=== PATIENT | male | born 1950 | race Caucasian/White ===

== ENCOUNTER 2023-10-13 17:43 | Inpatient (IN) | payer MEDICARE, OTHER, SELFPAY ==
[2023-10-13] VITALS (16 sets, daily range): BP systolic 111–176; BP diastolic 59–78; PULSE 65–100; RESP 14–21; TEMP 36.5–37.7; O2SAT 83–98; BMI 23.3
--- NOTE | ~2023-10-13 | XR_ITS ---
Portable chest x-ray Comparison: 10/13/2023 Clinical History: Pneumonia Findings: There is hazy left basilar airspace disease, possible minimal involvement the right lower lobe. Stable calcified left hilar lymph nodes. Cardiomediastinal silhouette is stable. Bones and sof t tissues are unremarkable. Impression: Bibasilar airspace disease, left worse than right. Correlate for pneumonia or possibly pulmonary pete a. Reviewed, dictated and finalized at location M. NO FLOOR SUPERVISOR Impression: Bibasilar airspace disease, left worse than right. Correlate for pneumonia or p ossibly pulmonary edema.
--- NOTE | ~2023-10-13 | XR_ITS ---
EXAMINATION: XR chest 1V portable INDICATION: Aspiration pneumonia TECHNIQUE: Portable AP chest at 0952 hours COMPARISON: 10/16/2023 FINDINGS: Bibasilar airspace opacities persist without significant change. No pleural effusion or pne umothorax. The cardiomediastinal silhouette is stable. IMPRESSION: 1. Stable bibasilar airspace opacities, consistent with atelectasis versus pneumonia. Reviewed, dictated and finalized at location L. ENT LIFE VICE PRESIDENT IMPRESSION: 1. Stable bibasilar airspace opacities, consistent with atelectasis versus pneu monia.
--- NOTE | ~2023-10-13 | XR_ITS ---
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 RESULT: Lines, tubes, and devices: None. Lungs and pleura: Peripheral reticular opacities and patchy lower lung groundglass opacities. Cardiomediastinal silhouette: Stable. Granulomatous calcifications. Other: No acute osseous or upper abdominal finding. IMPRESSION: Mild interstitial edema. Infection is not excluded Reviewed, dictated and finalized at location K. R LINE REPAIRER
--- NOTE | 2023-10-13 17:49 | ECG_ITS ---
Measurements Intervals [place] Rate: 92 P: 64 NV: 128 QRS: -11 QRSD: 103 T: 64 QT: 322 QTc: 399 Interpretive Statements SINUS RHYTHM INCOMPLETE RIGHT BUNDLE BRANCH BLOCK [90+ ms QRS DURATION, TERMINAL R IN V1/V2, 40+ ms S IN I/aVL/V4/V5/V6] BORDERLINE ECG NO PREVIOUS ECG AVAILABLE FOR COMPARISON Electronically Signed On 10-14-2023 8:04:25 INFORMATION SECURITY CONSULTANT by Julio Arias M.D.
[2023-10-13 18:13] LABS: Basophils Percent Auto 0.1 % (0.2-1.2); Eosinophils Absolute Auto 0.1 K/mm3 (0-0.3); Eosinophils Percent Auto 0.8 % (0-4.4); Hematocrit 41.2 % (42.0-52.0); Hemoglobin 13.8 g/dL (14.0-18.0); Immature Granulocyte Absolute 0.05 K/mm3 (0.00-0.031); Immature Granulocyte Percent A 0.4 % (0-0.5); Lymphocytes Absolute Auto 0.62 K/mm3 (0.9-3.2); Lymphocytes Percent Auto 5.1 % (18.3-44.2); Mean Corpuscular HGB Conc 33.5 g/dl (32-36); Mean Corpuscular Volume 95.6 fl (80-100); Mean Platelet Volume 11.1 fl (7.4-10.4); Monocytes Absolute Auto 0.9 K/mm3 (0.1-0.6); Monocytes Percent Auto 7.3 % (2.6-8.5); Neutrophils Absolute Auto 10.6 K/mm3 (1.3-6.7); Neutrophils Percent Auto 86.3 % (45.5-73.1); Platelet Count Result 161 k/mm3 (150-375); Red Blood Count 4.31 M/mm3 (4.6-6.20); Red Cell Distribution Width 11.9 % (11.5-14.5); White Blood Count 12.3 K/mm3 (4.5-10.0)
[2023-10-13 18:59] LABS: Alanine Aminotransferase 16 U/L (6-50); Albumin Level 4.3 g/dL (3.5-5.1); Alkaline Phosphatase 50 U/L (38-126); Anion Gap 7 mmol/L (8-16); Aspartate Amino Transferase 27 U/L (17-59); Bilirubin,Total 0.6 mg/dL (0.2-1.3); Blood Urea Nitrogen 21 mg/dL (9-20); Calcium 8.9 mg/dL (8.4-10.2); Carbon Dioxide 30 mmol/L (22-30); Chloride 96 mmol/L (98-107); Estimated CRCL calculation 102 ml/min; Estimated Glomerular Filt Rate > 60; Glucose 191 mg/dL (65-110); Potassium 4.4 mmol/L (3.4-5.0); Sodium 133 mmol/L (137-145)
[2023-10-13 19:04] LABS: Fractional Inspired Oxygen 44 %; HCO3 VBG 29.8 mEq/l (24.0-30.0); PCO2 VBG 45.7 mmHg (42.0-48.0); PO2 VBG 36.8 mmHg (35.0-45.0)
[2023-10-13 19:08] LABS: pH VBG 7.432 (7.300-7.400)
--- NOTE | 2023-10-13 19:55 | ED.SOB ---
HPI - SOB/Dyspnea General Chief Complaint: Shortness of Breath/Dyspnea <Frances Ledezma PA-C - Last Filed: 10/13/23 21:53> Stated Complaint: dyspnea <Frances Ledezma PA-C - Last Filed: 10/13/23 21:53> Time Seen by Provider: 10/13/23 19:33 <Frances Ledezma PA-C - Last Filed: 10/13/23 21:53> History of Present Illness HPI Narrative: 73-year-old male with history of tongue cancer that was diagnosed in 2010 chronic aspiration pneumonia with G-tube placement reports for evaluation for increased difficulty breathing over the past few days, worsening today. Patient arrived via EMS from home after his breathing significantly worsened around 1600. His is at bedside to assist with history. States they normally check patient's vital signs daily and he has been afebrile and satting in the mid upper 90s which is his baseline. Today, he spiked a fever of 101 and his O2 was found to be in the high 80s on EMS arrival to his home. He was placed on 4 L nasal cannula and has been satting mid to upper 90 since. He states he had some epigastric/inferior chest pain that lasted a few minutes upon EMS arrival but has since resolved. He denies radiating symptoms are aggravating or alleviating factors. He is reporting shortness of breath and believes it is secondary to a aspiration pneumonia. The patient has been NPO since 2021 when he had his G-tube placed for chronic aspiration pneumonia. She states he takes Zithromax 3 times a week for suppression. Reports a couple weeks ago, he began having a fever and was started on Augmentin. States he improved until the past few days. Denies history of heart failure. States he smoked cigarettes daily from college age to about 2004. All of his physicians are at [facility]. <Frances Ledezma PA-C - Last Filed: 10/13/23 21:53> Related Data Home Medications: Home Medications Medication Instructions Recorded Confirmed amlodipine 10 mg tablet 10 mg feeding tube DAILY 10/13/23 10/13/23 amoxicillin 875 mg-potassium 1 tablet feeding tube Q12H PRN 10/13/23 10/13/23 clavulanate 125 mg tablet Respiratory Distress azithromycin 500 mg tablet 500 mg feeding tube Q3-4D 10/13/23 10/13/23 cevimeline 30 mg capsule 1 cap feeding tube TID 10/13/23 10/13/23 levothyroxine 50 mcg capsule 50 mcg PO DAILY 10/13/23 10/13/23 sildenafil 25 mg tablet 25 mg PO DAILY PRN Erectile 10/13/23 10/13/23 Dysfunction <MARYBETH Lopez Last Filed: 10/13/23 21:53> Allergies/Adverse Reactions: Allergies Allergy/AdvReac Type Severity Reaction Status Date / Time Aminoglycosides Allergy Mild RASH Verified 10/13/23 21:58 bacitracin Allergy Mild RASH Verified 10/13/23 21:58 neomycin Allergy Mild RASH Verified 10/13/23 21:58 albuterol AdvReac Chest Pain Verified 10/13/23 21:58 ANTIHISTAMINE Allergy Mild RASH Uncoded 12/09/08 14:16 POLYMYXINBSULF Allergy Mild RASH Uncoded 12/09/08 14:16 <Frances Ledezma PA-C - Last Filed: 10/13/23 21:53> Review of Systems Review of Systems: CONSTITUTIONAL: Denies fever, chills, or sweats. EYES: Denies visual changes, redness, or discharge. ENT: Denies rhinorrhea, congestion, sore throat, or otalgia. CARDIOVASCULAR: See HPI RESPIRATORY: See HPI GASTROINTESTINAL: Denies abdominal pain, nausea, vomiting, or diarrhea. GENITOURINARY: Denies dysuria or hematuria. SKIN: Denies rash or itching. MUSCULOSKELETAL: Denies back pain, joint pain, or myalgia. NEUROLOGIC: Denies headache, numbness, or weakness. PSYCHIATRIC: Denies anxiety or depression. <MARYBETH Lopez Last Filed: 10/13/23 21:53> [facility] Past Medical History Medical History: Medical History (Updated 10/14/23 @ 17:36 by Christine Holm, ALBER) Gastrointestinal tube present History of gastrostomy tube placement Tongue cancer <MARYBETH Lopez Last Filed: 10/13/23 21:53> Social History Social History: Social History (Reviewed 10/13/23 @ 20:05 by Frances Ledezma
[2023-10-13 20:51] LABS: Alveolar/Arterial O2 Gradient 136.8 mmHg; Base Excess ABG 4.5 mEq/l (+/-2.0); Fractional Inspired Oxygen 36 %; HCO3 ABG 28.7 mEq/l (22.0-26.0); Oxygen Content ABG 18.7 %vol (16.0-22.0); Oxygen Saturation ABG 95.3 % (95.0-100.0); Oxyhemoglobin 93.7 % THb (90.0-100.0); PO2 ABG 72.3 mmHg (80.0-100.0); PO2 FiO2 Ratio Arterial Blood 2.01 %; Total Hemoglobin 14.2 g/dL (12.0-18.0); pH ABG 7.463 (7.350-7.450)
[2023-10-13 20:52] LABS: Device NASAL CANNULA; Modified Allen's Test Pass; Site Drawn RIGHT RADIAL
[2023-10-13 21:04] LABS: Magnesium 2.5 mg/dL (1.6-2.3)
[2023-10-13 21:04] LABS: Prothrombin Time 13.4 Seconds (11.1-14.7)
[2023-10-13 21:05] LABS: Partial Thromboplastin Time 27.5 SECONDS (22.3-36.8)
[2023-10-13] MEDS: PIPERACILLIN/TAZ 4.5G/NS 100ML 4.5 GM/100 ML BAG IVPB (21:07)
[2023-10-13 21:16] LABS: NT Pro B Type Natriuretic Pept 427 pg/mL (19.9-100)
[2023-10-13 21:18] LABS: Appearance Urine Clear (Clear); Bacteria Urine None Seen /hpf; Bilirubin Urine Negative (Negative); Blood Urine Negative (Negative); Color Urine Yellow (Yellow); Glucose Urine UA Negative (Negative); Ketones Urine Negative (Negative); Leukocyte Esterase Ur Negative LEU/UL (Negative); Nitrate Urine Negative (Negative); Non Pathogenic Casts 0-2; Protein Urine 1+ mg/dL (Negative); RBC Urine 0-2 /hpf (0-2); Specific Grav Ur 1.013 (1.001-1.035); Squamous Epithelial Cell Urine None seen /hpf (Few); WBC Urine 0-5 /hpf; pH Urine 7.5 (5.0-9.0)
[2023-10-13 21:22] LABS: Add Urine Microscopic? YES
--- NOTE | 2023-10-13 21:49 | PM.IMHP ---
H&P: HPI History of Present Illness Date/Time: 10/13/23 21:49 Chief Complaint: shortness of breath Narrative: This is a 73-year-old male with past medical history significant remote head and neck cancer status post partial tongue resection, radiation chemotherapy, recurrent aspiration pneumonia, status post PEG tube placement, patient presents to the emergency room due to shortness of breath worsened over the last 2-3 days, patient is NPO is able to swallow his secretions. Denies any fevers, rigors, chills, nausea, vomiting. EXAMINATION:? XR chest 2V Exam Date/Time:? 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 Comparison:? None. RESULT: Lines, tubes, and devices:? None. Lungs and pleura:? Peripheral reticular opacities and patchy lower lung groundglass opacities. Cardiomediastinal silhouette:? Stable. Granulomatous calcifications. Other:? No acute osseous or upper abdominal finding. ? IMPRESSION: Mild interstitial edema. Infection is not excluded Review of Systems Review of Systems: shortness of breath Constitutional: Constitutional: Denies body ache(s), Denies chills, Denies fatigue, Denies fever(s), Denies malaise and Reports other ( NPO peg tube in place) Eyes: Eyes: Denies change in vision ENT: Reports dysphagia Cardiovascular: Cardiovascular: Denies chest pain, Denies radiating jaw, neck or arm pain and Denies palpitations Respiratory: Respiratory: Denies excessive phlegm production, Reports dyspnea and Denies wheezing Gastrointestinal: Gastrointestinal: Denies abdominal pain, Denies dyspepsia, Denies heartburn, Denies diarrhea, Denies nausea and Denies vomiting Genitourinary: Genitourinary: Denies dysuria Musculoskeletal: Musculoskeletal: Denies arthralgias Integumentary/Breasts: Skin/Breast: Denies rash Neurologic: Denies focal weakness and Denies Sensory deficit (Neuro) Psychiatric: Psychiatric: Reports no additional psychiatric complaints and Reports as per HPI Endocrine: Endocrine: Denies cold intolerance, Denies flushing, Denies heat intolerance, Denies polyphagia, Denies polydipsia and Denies palpitations Hematologic/Lymphatic: Hematologic/Lymphatic: Reports no additional hematologic/lymphatic complaints and Reports as per HPI Allergic/Immunologic: Allergic/Immunologic: Reports no additional allergic/immunologic complaints and Reports as per HPI [facility] Past Medical History Medical History (Updated 10/14/23 @ 21:34 by Delores Smith MD) Aspiration pneumonia Gastrointestinal tube present History of gastrostomy tube placement Tongue cancer Social History Social History Smoking packs per day: 1 Smoking cigarettes per day: 20.0 Smoking status: Former smoker Tobacco type: cigarettes Second hand tobacco smoke exposure: No Alcohol intake: never Substance use: never Do You Feel Safe in your Home?: Yes Lack of Transportation: No Lack of Food: Never True Current Housing: I Have Housing Concerned About Future Housing: No Difficulty Paying Gas/Electric Bills: No Difficulty Paying for Meds: No Currently Unemployed: No Education: Master's Degree or Higher Difficulty w/ Childcare or Family Care: No Spiritual care concerns: No Meds Home Medications and Allergies Home Medications Medication Instructions Recorded Confirmed Type amlodipine 10 mg tablet 10 mg feeding tube DAILY 10/13/23 10/13/23 History amoxicillin 875 mg-potassium 1 tablet feeding tube Q12H PRN 10/13/23 10/13/23 History clavulanate 125 mg tablet Respiratory Distress azithromycin 500 mg tablet 500 mg feeding tube Q3-4D 10/13/23 10/13/23 History cevimeline 30 mg capsule 1 cap feeding tube TID 10/13/23 10/13/23 History levothyroxine 50 mcg capsule 50 mcg PO DAILY 10/13/23 10/13/23 History sildenafil 25 mg tablet 25 mg PO DAILY PRN Erectile 10/13/23 10/13/23 History Dysfunction Allergies Allergy/AdvReac Ty
--- NOTE | 2023-10-13 22:58 | PC.NURSE ---
Pt flushed 16 oz filtered water through his g tube- verbal okay given per BRENT Emerson.
--- NOTE | 2023-10-13 23:33 | ADMGEN ---
This patient, Ashlee Hinds Jr, was admitted to [facility] Surg Room 324-02. Patient/family oriented to hospital policies and general routines including ID bracelet, bed and alarms, visiting hours, pain management, procedures, bathroom and other care routines, personal items, smoking policy, room service/diet, and visiting hours. Information on how to activate the Rapid Response Team has been discussed. Patient/Family are encouraged to report perceived risks to care and to ask questions if they do not understand what they are told or what they should do.
[2023-10-14] MEDS: WATER FOR IRRIGATION, STERILE 1,000 ML BOTTLE 1000 ML ×3 (04:39→19:51)
[2023-10-14 06:00] VITALS: BP 148/80; PULSE 73; RESP 20; TEMP 36.6; O2SAT 98
[2023-10-14] MEDS: LEVOTHYROXINE SODIUM 50 MCG TABLET FEED TUBE (06:17)
[2023-10-14] MEDS: amLODIPine BESYLATE 5 MG TABLET 10 MG FEED TUBE (08:57)
[2023-10-14 09:16] VITALS: O2SAT 91
--- NOTE | 2023-10-14 11:12 | PM.IMPN ---
Progress Note: A&P Assessment and Plan (1) Acute hypoxemic respiratory failure: Code(s): J96.01 - Acute respiratory failure with hypoxia Status: Acute Assessment and Plan: 10/14/2023: Currently on 3 L nasal cannula Crackles noted to all right greater than left lung kerns Wean O2 to keep sat greater than 92% Chest x-ray suggesting aspiration pneumonia Patient started on Rocephin and azithromycin will switch to Unasyn and Flagyl considering the aspiration pneumonia Patient currently on G-tube feedings, he does not receive any feedings by mouth (2) Aspiration pneumonia: Qualifiers: Aspiration pneumonia type: unspecified Laterality: unspecified laterality Lung location: unspecified part of lung Qualified Code(s): J69.0 - Pneumonitis due to inhalation of food and vomit Code(s): J69.0 - Pneumonitis due to inhalation of food and vomit Status: Acute Assessment and Plan: See above (3) Tongue cancer: Code(s): C02.9 - Malignant neoplasm of tongue, unspecified Status: Chronic Assessment and Plan: Of note, was diagnosed in 2010 has been G-tube dependent since then (4) Gastrointestinal tube present: Code(s): Z93.1 - Gastrostomy status Status: Acute Assessment and Plan: 10/14/2023: Continue home tube feeding of Arelis giang Melquiades 1.4 count Q 4 hour bolus feeds and water flushes Medications per tube Time Spent With Patient Time with patient: Greater than 35 minutes Subjective Date/time seen: 10/14/23 11:12 Interval history: This is a 73-year-old male who presented to the hospital on 10/13/2023 with shortness of breath. Workup in the hospital included a chest x-ray which shown mild interstitial edema, peripheral opacities and patchy lower lung ground-glass opacities. EKG shows normal sinus rhythm with a rate of 92 and an incomplete right bundle branch block. Labs revealed a white blood cell count of 12.3, hemoglobin 13.8, hematocrit 41.2, sodium 133, chloride 96, magnesium 2.5, liver enzymes are normal, proBNP 426, troponin 0.030. UA was obtained and showed 1+ protein otherwise essentially normal. Blood cultures were obtained and are pending. Patient was given a dose of Zosyn while in the ED. On examination today patient is alert oriented x3, lying in the bed. Labs today revealed white blood cell count of 13.4, hemoglobin 13.2, hematocrit 38.9, sodium 134, blood sugars ranging 136-191, liver enzymes are normal, alk-phos 36. Patient endorses shortness of breath. Patient denies any fever, chills, nausea, vomiting, diarrhea, abdominal pain, chest pain. Lungs coarse on right lung kerns, he is currently on 3 L nasal cannula. He does not appear to be in any acute distress. Patient was started on Rocephin and Azithromycin and will switch to Unasyn and Flagyl considering this is more aspiration pneumonia. Review of Systems Review of Systems: All systems reviewed & are unremarkable except as noted in HPI and below Constitutional: Constitutional: Reports as per HPI and Reports no additional constitutional complaints Eyes: Eyes: Reports as per HPI and Reports no additional eye complaints ENT: Reports system reviewed and no additional complaints, except as documented and Reports as per HPI Cardiovascular: Cardiovascular: Reports as per HPI and Reports no additional cardiovascular complaints Respiratory: Respiratory: Reports as per HPI and Reports no additional respiratory complaints Gastrointestinal: Gastrointestinal: Reports as per HPI and Reports no additional gastrointestinal complaints Genitourinary: Genitourinary: Reports no additional male genitourinary complaints and Reports as per HPI Musculoskeletal: Musculoskeletal: Reports no additional musculoskeletal complaints and Reports as per HPI Integumentary/Breasts: Skin/Breast: Reports system reviewed and no additional complaints, except as docu and Reports as per HPI Neurologic: Repor
--- NOTE | 2023-10-14 11:42 | PC.NURSE ---
Pt feeds self 6 bolus feedings throughout the day. His formula is [employer], vanilla, 1.4 niurka/ml, 11 ounces per carton. Pt only uses sterile or filtered water. He flushes a total of 8 oz of flush with each feeding. 2-3mls of residual this morning when pt administered his amlodipine with approx 1-2 oz water pre and post med flushing
[2023-10-14 12:19] LABS: Basophils Percent Auto 0.1 % (0.2-1.2); Hematocrit 38.9 % (42.0-52.0); Hemoglobin 13.2 g/dL (14.0-18.0); Immature Granulocyte Absolute 0.06 K/mm3 (0.00-0.031); Immature Granulocyte Percent A 0.4 % (0-0.5); Lymphocytes Percent Auto 4.5 % (18.3-44.2); Mean Corpuscular HGB Conc 33.9 g/dl (32-36); Mean Corpuscular Hemoglobin 32.4 pg (26-34); Mean Corpuscular Volume 95.3 fl (80-100); Mean Platelet Volume 10.7 fl (7.4-10.4); Monocytes Absolute Auto 0.7 K/mm3 (0.1-0.6); Monocytes Percent Auto 5.1 % (2.6-8.5); Neutrophils Percent Auto 89.9 % (45.5-73.1); Platelet Count Result 159 k/mm3 (150-375); Red Blood Count 4.08 M/mm3 (4.6-6.20); Red Cell Distribution Width 11.9 % (11.5-14.5); White Blood Count 13.4 K/mm3 (4.5-10.0)
[2023-10-14 12:28] LABS: Alanine Aminotransferase 16 U/L (6-50); Alkaline Phosphatase 36 U/L (38-126); Anion Gap 3 mmol/L (8-16); Aspartate Amino Transferase 23 U/L (17-59); Bilirubin,Total 0.5 mg/dL (0.2-1.3); Blood Urea Nitrogen 17 mg/dL (9-20); Carbon Dioxide 29 mmol/L (22-30); Chloride 102 mmol/L (98-107); Estimated CRCL calculation 120 ml/min; Estimated Glomerular Filt Rate > 60; Glucose 136 mg/dL (65-110); Potassium 3.7 mmol/L (3.4-5.0); Sodium 134 mmol/L (137-145)
[2023-10-14] MEDS: AZITHROMYCIN 500 MG/NS 250 ML 500 MG/250 ML BAG 250 MG IVPB (13:00)
[2023-10-14 14:00] VITALS: BP 111/61; PULSE 79; RESP 14; TEMP 36.4; O2SAT 94
[2023-10-14] MEDS: WATER FOR IRRIGATION, STERILE 500 ML BOTTLE (19:50)
[2023-10-14 20:00] VITALS: O2SAT 92
[2023-10-14] MEDS: AMPICILLIN SULB 1.5 GM/NS 50ML 1.5 GM/50 ML VIAL IVPB (20:34)
[2023-10-14] MEDS: SODIUM CHLORIDE NASAL GEL 14.1 GM 1 APPLIC NASAL (20:41)
[2023-10-14 21:00] VITALS: BP 135/61; PULSE 84; RESP 21; TEMP 37.4; O2SAT 95
[2023-10-14] MEDS: metroNIDAZOLE 500 MG/ISO 100ML 500 MG/100 ML BAG 100 MG IVPB (21:07)
[2023-10-14 21:40] VITALS: O2SAT 92
[2023-10-15] VITALS (8 sets, daily range): BP systolic 128–134; BP diastolic 58–76; PULSE 73–84; RESP 18–21; TEMP 36.5–37.7; O2SAT 92–98; BMI 23.3
[2023-10-15] MEDS: AMPICILLIN SULB 1.5 GM/NS 50ML 1.5 GM/50 ML VIAL IVPB ×5 (00:55→23:23)
[2023-10-15] MEDS: ACETAMINOPHEN ELIXIR 325 MG/10.15 ML UDC 650 MG PO ×2 (01:25→14:03)
[2023-10-15] MEDS: WATER FOR IRRIGATION, STERILE 1,000 ML BOTTLE 2000 ML ×2 (03:55→19:48)
[2023-10-15] MEDS: metroNIDAZOLE 500 MG/ISO 100ML 500 MG/100 ML BAG 100 MG IVPB ×3 (04:50→20:17)
[2023-10-15] MEDS: SODIUM CHLORIDE 0.9% IV 500 ML 30 ML (04:50)
[2023-10-15] MEDS: LEVOTHYROXINE SODIUM 50 MCG TABLET FEED TUBE (06:14)
[2023-10-15 06:33] LABS: Basophils Percent Auto 0.2 % (0.2-1.2); Eosinophils Absolute Auto 0.1 K/mm3 (0-0.3); Eosinophils Percent Auto 0.4 % (0-4.4); Hematocrit 37.8 % (42.0-52.0); Hemoglobin 12.8 g/dL (14.0-18.0); Immature Granulocyte Absolute 0.05 K/mm3 (0.00-0.031); Immature Granulocyte Percent A 0.4 % (0-0.5); Lymphocytes Absolute Auto 0.97 K/mm3 (0.9-3.2); Lymphocytes Percent Auto 8.5 % (18.3-44.2); Mean Corpuscular HGB Conc 33.9 g/dl (32-36); Mean Corpuscular Hemoglobin 32.5 pg (26-34); Mean Corpuscular Volume 95.9 fl (80-100); Mean Platelet Volume 11.1 fl (7.4-10.4); Monocytes Absolute Auto 1.3 K/mm3 (0.1-0.6); Neutrophils Percent Auto 79.5 % (45.5-73.1); Platelet Count Result 161 k/mm3 (150-375); Red Blood Count 3.94 M/mm3 (4.6-6.20); Red Cell Distribution Width 12.1 % (11.5-14.5); White Blood Count 11.4 K/mm3 (4.5-10.0)
[2023-10-15 06:52] LABS: Alanine Aminotransferase 14 U/L (6-50); Albumin Level 3.6 g/dL (3.5-5.1); Alkaline Phosphatase 46 U/L (38-126); Anion Gap 2 mmol/L (8-16); Aspartate Amino Transferase 27 U/L (17-59); Bilirubin,Total 0.5 mg/dL (0.2-1.3); Blood Urea Nitrogen 20 mg/dL (9-20); Calcium 8.5 mg/dL (8.4-10.2); Carbon Dioxide 31 mmol/L (22-30); Chloride 103 mmol/L (98-107); Estimated CRCL calculation 120 ml/min; Estimated Glomerular Filt Rate > 60; Glucose 117 mg/dL (65-110); Potassium 4.1 mmol/L (3.4-5.0); Sodium 136 mmol/L (137-145)
--- NOTE | 2023-10-15 07:00 | PHAR ---
HOME MED Cevimeline 30 mg Capsule 1 TID HOME MED VERIFIED
[2023-10-15] MEDS: SACCHAROMYCES BOULARDII 250 MG CAPSULE PO ×3 (09:09→17:04)
[2023-10-15] MEDS: amLODIPine BESYLATE 5 MG TABLET 10 MG FEED TUBE (09:09)
--- NOTE | 2023-10-15 09:26 | PM.IMPN ---
Progress Note: A&P Assessment and Plan (1) Acute hypoxemic respiratory failure: Code(s): J96.01 - Acute respiratory failure with hypoxia Status: Acute Assessment and Plan: 10/14/2023: Currently on 3 L nasal cannula Crackles noted to all right greater than left lung kerns Wean O2 to keep sat greater than 92% Chest x-ray suggesting aspiration pneumonia Patient started on Rocephin and azithromycin will switch to Unasyn and Flagyl considering the aspiration pneumonia Patient currently on G-tube feedings, he does not receive any feedings by mouth 10/15/23: Remains on 2 L nasal cannula Continue to wean O2 to keep his sat greater than 92% Continue with Unasyn and Flagyl Will start Xopenex and Solu-Medrol today Ordered Pep therapy and incentive spirometry Will repeat chest x-ray in the morning (2) Aspiration pneumonia: Qualifiers: Aspiration pneumonia type: unspecified Laterality: unspecified laterality Lung location: unspecified part of lung Qualified Code(s): J69.0 - Pneumonitis due to inhalation of food and vomit Code(s): J69.0 - Pneumonitis due to inhalation of food and vomit Status: Acute Assessment and Plan: See above (3) Tongue cancer: Code(s): C02.9 - Malignant neoplasm of tongue, unspecified Status: Chronic Assessment and Plan: Of note, was diagnosed in 2010 has been G-tube dependent since then (4) Gastrointestinal tube present: Code(s): Z93.1 - Gastrostomy status Status: Acute Assessment and Plan: 10/14/2023: Continue home tube feeding of [employer]Melqui[employer] 1.4 count Q 4 hour bolus feeds and water flushes Medications per tube 10/15/23: No change to current treatment plan Time Spent With Patient Time with patient: 25 - 35 minutes Subjective Date/time seen: 10/15/23 09:26 Interval history: 10/14/23: This is a 73-year-old male who presented to the hospital on 10/13/2023 with shortness of breath. Workup in the hospital included a chest x-ray which shown mild interstitial edema, peripheral opacities and patchy lower lung ground-glass opacities. EKG shows normal sinus rhythm with a rate of 92 and an incomplete right bundle branch block. Labs revealed a white blood cell count of 12.3, hemoglobin 13.8, hematocrit 41.2, sodium 133, chloride 96, magnesium 2.5, liver enzymes are normal, proBNP 426, troponin 0.030. UA was obtained and showed 1+ protein otherwise essentially normal. Blood cultures were obtained and are pending. Patient was given a dose of Zosyn while in the ED. On examination today patient is alert oriented x3, lying in the bed. Labs today revealed white blood cell count of 13.4, hemoglobin 13.2, hematocrit 38.9, sodium 134, blood sugars ranging 136-191, liver enzymes are normal, alk-phos 36. Patient endorses shortness of breath. Patient denies any fever, chills, nausea, vomiting, diarrhea, abdominal pain, chest pain. Lungs coarse on right lung kerns, he is currently on 3 L nasal cannula. He does not appear to be in any acute distress. Patient was started on Rocephin and Azithromycin and will switch to Unasyn and Flagyl considering this is more aspiration pneumonia. 10/15/23: Tmax 99.9, currently on 2L NC, VSS. Labs reveal WBC 11.4, hemoglobin 12.8, hematocrit 37.8, sodium 136. Blood culture showing no growth on preliminary read. Will continue with Unasyn and Flagyl for now. Will start Xopenex and Solu-Medrol today as right lung field sounds more harsh today than yesterday. Overall he is improving. Review of Systems Review of Systems: All systems reviewed & are unremarkable except as noted in HPI and below Constitutional: Constitutional: Reports as per HPI and Reports no additional constitutional complaints Eyes: Eyes: Reports as per HPI and Reports no additional eye complaints ENT: Reports system reviewed and no additional complaints, except as documented and Reports as per HPI Cardiovascular: Ca
[2023-10-15] MEDS: methylPREDNISolone SOD SUCC 40 MG VIAL IV PUSH (17:04)
[2023-10-15] MEDS: LEVALBUTEROL NEB 1.25 MG/3 ML INHALATION (20:02)
[2023-10-15] MEDS: SODIUM CHLORIDE NASAL GEL 14.1 GM 1 APPLIC NASAL (20:24)
[2023-10-16] VITALS (14 sets, daily range): BP systolic 125–127; BP diastolic 50–77; PULSE 64–87; RESP 13–20; TEMP 36.3–36.6; O2SAT 92–96
[2023-10-16] MEDS: LEVALBUTEROL NEB 1.25 MG/3 ML INHALATION ×5 (02:05→20:48)
[2023-10-16] MEDS: metroNIDAZOLE 500 MG/ISO 100ML 500 MG/100 ML BAG 100 MG IVPB ×3 (04:24→20:02)
[2023-10-16] MEDS: AMPICILLIN SULB 1.5 GM/NS 50ML 1.5 GM/50 ML VIAL IVPB ×4 (05:50→23:20)
[2023-10-16] MEDS: LEVOTHYROXINE SODIUM 50 MCG TABLET FEED TUBE (05:50)
[2023-10-16 07:09] LABS: Basophils Percent Auto 0.1 % (0.2-1.2); Hematocrit 38.4 % (42.0-52.0); Immature Granulocyte Absolute 0.04 K/mm3 (0.00-0.031); Immature Granulocyte Percent A 0.4 % (0-0.5); Lymphocytes Absolute Auto 0.62 K/mm3 (0.9-3.2); Lymphocytes Percent Auto 6.9 % (18.3-44.2); Mean Corpuscular HGB Conc 33.9 g/dl (32-36); Mean Corpuscular Hemoglobin 32.7 pg (26-34); Mean Corpuscular Volume 96.5 fl (80-100); Mean Platelet Volume 10.8 fl (7.4-10.4); Monocytes Absolute Auto 0.6 K/mm3 (0.1-0.6); Monocytes Percent Auto 7.1 % (2.6-8.5); Neutrophils Absolute Auto 7.7 K/mm3 (1.3-6.7); Neutrophils Percent Auto 85.5 % (45.5-73.1); Platelet Count Result 169 k/mm3 (150-375); Red Blood Count 3.98 M/mm3 (4.6-6.20); White Blood Count 9.1 K/mm3 (4.5-10.0)
[2023-10-16 07:32] LABS: Alanine Aminotransferase 17 U/L (6-50); Albumin Level 3.9 g/dL (3.5-5.1); Alkaline Phosphatase 44 U/L (38-126); Anion Gap 5 mmol/L (8-16); Aspartate Amino Transferase 28 U/L (17-59); Bilirubin,Total 0.4 mg/dL (0.2-1.3); Blood Urea Nitrogen 15 mg/dL (9-20); Calcium 8.6 mg/dL (8.4-10.2); Carbon Dioxide 29 mmol/L (22-30); Chloride 102 mmol/L (98-107); Estimated CRCL calculation 120 ml/min; Estimated Glomerular Filt Rate > 60; Glucose 137 mg/dL (65-110); Potassium 4.2 mmol/L (3.4-5.0); Sodium 136 mmol/L (137-145)
[2023-10-16] MEDS: amLODIPine BESYLATE 5 MG TABLET 10 MG FEED TUBE (09:14)
[2023-10-16] MEDS: methylPREDNISolone SOD SUCC 40 MG VIAL IV PUSH ×2 (09:14→16:50)
[2023-10-16] MEDS: SACCHAROMYCES BOULARDII 250 MG CAPSULE PO ×3 (09:14→16:50)
--- NOTE | 2023-10-16 10:50 | PCNFU ---
Nutrition Follow-Up Complete: Inability to swallow requiring PEG tube feedings related to hx of tongue cancer, aspiration as evidenced by need for full tube feedings. Goal:Tolerate tube feeding at goal rate Pt current nutrition is home tube feeding regimen. Nutrition recommendation: continue with current plan of care Last recorded weight is 76.1 kg. Bowel Motility: +BM 10/14 Labs Reviewed: Hgb:13, HCT:38.4, NA:136, Cr:0.5 Meds Noted: lovenox, solumedrol Skin: no skin issues Additional Notes: Pt gives himself his own tube feeding at home and BROUGHT IN HOME TUBE FEEDING since we do not carry his formula. Krave-N 1.4 - each 11 oz container is 445 kcal, 20 g protein, 234 ml free water. Bolus 6x day for total 2670 kcal, 120 g protein, 1404 ml free water. Flushes 8 oz with each bolus for total 2826 ml free water/day. Pt tolerating. Monitoring tolerance, labs, weights, plan of care Follow up Tuesdays and Fridays per policy
--- NOTE | 2023-10-16 14:21 | P.PNIM_ITS ---
Progress Note: A&P Assessment and Plan (1) Acute hypoxemic respiratory failure: Code(s): J96.01 - Acute respiratory failure with hypoxia Status: Acute Assessment and Plan: 10/14/2023: * Currently on 3 L nasal cannula * Crackles noted to all right greater than left lung kerns * Wean O2 to keep sat greater than 92% * Chest x-ray suggesting aspiration pneumonia * Patient started on Rocephin and azithromycin will switch to Unasyn and Flagyl considering the aspiration pneumonia * Patient currently on G-tube feedings, he does not receive any feedings by mouth 10/15/23: * Remains on 2 L nasal cannula * Continue to wean O2 to keep his sat greater than 92% * Continue with Unasyn and Flagyl * Will start Xopenex and Solu-Medrol today * Ordered Pep therapy and incentive spirometry * Will repeat chest x-ray in the morning 10/16/2023: * currently on 1.0 L nasal cannula * continue to wean oxygen to keep sat greater than 92% * Lung sounds harsh bilaterally today * continue with IV antibiotics, will likely transition to oral antibiotics tomorrow * continue breathing treatments and Solu-Medrol * continue incentive spirometry and pep therapy * Currently on Claritin * Will start Flonase today (2) Aspiration pneumonia: Qualifiers: Aspiration pneumonia type: unspecified Laterality: unspecified laterality Lung location: unspecified part of lung Qualified Code(s): J69.0 - Pneumonitis due to inhalation of food and vomit Code(s): J69.0 - Pneumonitis due to inhalation of food and vomit Status: Acute Assessment and Plan: * See above (3) Tongue cancer: Code(s): C02.9 - Malignant neoplasm of tongue, unspecified Status: Chronic Assessment and Plan: * Of note, was diagnosed in 2010 has been G-tube dependent since then (4) Gastrointestinal tube present: Code(s): Z93.1 - Gastrostomy status Status: Acute Assessment and Plan: 10/14/2023: * Continue home tube feeding of Melquiades Olivo 1.4 count Q 4 hour bolus feeds and water flushes * Medications per tube 10/15/23: * No change to current treatment plan Time Spent With Patient Time with patient: Greater than 35 minutes Subjective Date/time seen: 10/16/23 14:21 Interval history: 10/14/23: This is a 73-year-old male who presented to the hospital on 10/13/2023 with shortness of breath. Workup in the hospital included a chest x-ray which shown mild interstitial edema, peripheral opacities and patchy lower lung ground-glass opacities. EKG shows normal sinus rhythm with a rate of 92 and an incomplete right bundle branch block. Labs revealed a white blood cell count of 12.3, hemoglobin 13.8, hematocrit 41.2, sodium 133, chloride 96, magnesium 2.5, liver enzymes are normal, proBNP 426, troponin 0.030. UA was obtained and showed 1+ protein otherwise essentially normal. Blood cultures were obtained and are pending. Patient was given a dose of Zosyn while in the ED. On examination today patient is alert oriented x3, lying in the bed. Labs today revealed white blood cell count of 13.4, hemoglobin 13.2, hematocrit 38.9, sodium 134, blood sugars ranging 136-191, liver enzymes are normal, alk-phos 36. Patient endorses shortness of breath. Patient denies any fever, chills, nausea, vomiting, diarrhea, abdominal pain, chest pain. Lungs coarse on right lung kerns, he is currently on 3 L nasal cannula. He does not appear to be in any acute distress. Patient was started on Rocephin and Azithromycin and will switch to Unasyn and Flagyl considering this is more aspiration pneumonia.
--- NOTE | 2023-10-16 14:21 | PM.IMPN ---
Progress Note: A&P Assessment and Plan (1) Acute hypoxemic respiratory failure: Code(s): J96.01 - Acute respiratory failure with hypoxia Status: Acute Assessment and Plan: 10/14/2023: Currently on 3 L nasal cannula Crackles noted to all right greater than left lung kerns Wean O2 to keep sat greater than 92% Chest x-ray suggesting aspiration pneumonia Patient started on Rocephin and azithromycin will switch to Unasyn and Flagyl considering the aspiration pneumonia Patient currently on G-tube feedings, he does not receive any feedings by mouth 10/15/23: Remains on 2 L nasal cannula Continue to wean O2 to keep his sat greater than 92% Continue with Unasyn and Flagyl Will start Xopenex and Solu-Medrol today Ordered Pep therapy and incentive spirometry Will repeat chest x-ray in the morning 10/16/2023: currently on 1.0 L nasal cannula continue to wean oxygen to keep sat greater than 92% Lung sounds harsh bilaterally today continue with IV antibiotics, will likely transition to oral antibiotics tomorrow continue breathing treatments and Solu-Medrol continue incentive spirometry and pep therapy Currently on Claritin Will start Flonase today (2) Aspiration pneumonia: Qualifiers: Aspiration pneumonia type: unspecified Laterality: unspecified laterality Lung location: unspecified part of lung Qualified Code(s): J69.0 - Pneumonitis due to inhalation of food and vomit Code(s): J69.0 - Pneumonitis due to inhalation of food and vomit Status: Acute Assessment and Plan: See above (3) Tongue cancer: Code(s): C02.9 - Malignant neoplasm of tongue, unspecified Status: Chronic Assessment and Plan: Of note, was diagnosed in 2010 has been G-tube dependent since then (4) Gastrointestinal tube present: Code(s): Z93.1 - Gastrostomy status Status: Acute Assessment and Plan: 10/14/2023: Continue home tube feeding of [employer] 1.4 count Q 4 hour bolus feeds and water flushes Medications per tube 10/15/23: No change to current treatment plan Time Spent With Patient Time with patient: Greater than 35 minutes Subjective Date/time seen: 10/16/23 14:21 Interval history: 10/14/23: This is a 73-year-old male who presented to the hospital on 10/13/2023 with shortness of breath. Workup in the hospital included a chest x-ray which shown mild interstitial edema, peripheral opacities and patchy lower lung ground-glass opacities. EKG shows normal sinus rhythm with a rate of 92 and an incomplete right bundle branch block. Labs revealed a white blood cell count of 12.3, hemoglobin 13.8, hematocrit 41.2, sodium 133, chloride 96, magnesium 2.5, liver enzymes are normal, proBNP 426, troponin 0.030. UA was obtained and showed 1+ protein otherwise essentially normal. Blood cultures were obtained and are pending. Patient was given a dose of Zosyn while in the ED. On examination today patient is alert oriented x3, lying in the bed. Labs today revealed white blood cell count of 13.4, hemoglobin 13.2, hematocrit 38.9, sodium 134, blood sugars ranging 136-191, liver enzymes are normal, alk-phos 36. Patient endorses shortness of breath. Patient denies any fever, chills, nausea, vomiting, diarrhea, abdominal pain, chest pain. Lungs coarse on right lung kerns, he is currently on 3 L nasal cannula. He does not appear to be in any acute distress. Patient was started on Rocephin and Azithromycin and will switch to Unasyn and Flagyl considering this is more aspiration pneumonia. 10/15/23: Tmax 99.9, currently on 2L NC, VSS. Labs reveal WBC 11.4, hemoglobin 12.8, hematocrit 37.8, sodium 136. Blood culture showing no growth on preliminary read. Will continue with Unasyn and Flagyl for now. Will start Xopenex and Solu-Medrol today as right lung field sounds more harsh today than yesterday. Overall he is improving. 10/16/2023: T-max 99.3?, curr
[2023-10-16] MEDS: WATER FOR IRRIGATION, STERILE 1,000 ML BOTTLE 1000 ML (16:50)
[2023-10-16] MEDS: FLUTICASONE PROPIONATE 0.05% NA SPR 16 GM BTL (*BKC) 1 SPRAY NASAL (20:02)
[2023-10-16] MEDS: SODIUM CHLORIDE NASAL GEL 14.1 GM 1 APPLIC NASAL (20:02)
[2023-10-17] VITALS (9 sets, daily range): BP systolic 115–152; BP diastolic 62–74; PULSE 80–93; RESP 13–22; TEMP 36.3–36.9; O2SAT 91–95
[2023-10-17] MEDS: AMPICILLIN SULB 1.5 GM/NS 50ML 1.5 GM/50 ML VIAL IVPB ×2 (05:02→12:51)
[2023-10-17] MEDS: metroNIDAZOLE 500 MG/ISO 100ML 500 MG/100 ML BAG 100 MG IVPB ×2 (05:02→13:10)
[2023-10-17] MEDS: LEVOTHYROXINE SODIUM 50 MCG TABLET FEED TUBE (05:09)
[2023-10-17 06:01] LABS: Basophils Percent Auto 0.1 % (0.2-1.2); Hematocrit 38.8 % (42.0-52.0); Hemoglobin 12.7 g/dL (14.0-18.0); Immature Granulocyte Percent A 0.7 % (0-0.5); Lymphocytes Absolute Auto 0.82 K/mm3 (0.9-3.2); Lymphocytes Percent Auto 5.5 % (18.3-44.2); Mean Corpuscular HGB Conc 32.7 g/dl (32-36); Mean Corpuscular Hemoglobin 32.5 pg (26-34); Mean Corpuscular Volume 99.2 fl (80-100); Mean Platelet Volume 10.5 fl (7.4-10.4); Monocytes Absolute Auto 1.1 K/mm3 (0.1-0.6); Neutrophils Percent Auto 86.7 % (45.5-73.1); Platelet Count Result 179 k/mm3 (150-375); Red Blood Count 3.91 M/mm3 (4.6-6.20); Red Cell Distribution Width 12.4 % (11.5-14.5)
[2023-10-17 06:33] LABS: Alanine Aminotransferase 15 U/L (6-50); Albumin Level 3.8 g/dL (3.5-5.1); Alkaline Phosphatase 46 U/L (38-126); Anion Gap 1 mmol/L (8-16); Aspartate Amino Transferase 19 U/L (17-59); Bilirubin,Total 0.4 mg/dL (0.2-1.3); Blood Urea Nitrogen 15 mg/dL (9-20); Calcium 8.8 mg/dL (8.4-10.2); Carbon Dioxide 30 mmol/L (22-30); Chloride 102 mmol/L (98-107); Estimated CRCL calculation 146 ml/min; Estimated Glomerular Filt Rate > 60; Glucose 134 mg/dL (65-110); Sodium 133 mmol/L (137-145)
[2023-10-17 06:45] LABS: Potassium 3.8 mmol/L (3.4-5.0)
[2023-10-17] MEDS: LEVALBUTEROL NEB 1.25 MG/3 ML INHALATION ×3 (07:04→21:23)
[2023-10-17] MEDS: amLODIPine BESYLATE 5 MG TABLET 10 MG FEED TUBE (08:43)
[2023-10-17] MEDS: SACCHAROMYCES BOULARDII 250 MG CAPSULE PO ×3 (08:44→18:38)
[2023-10-17] MEDS: methylPREDNISolone SOD SUCC 40 MG VIAL IV PUSH (08:44)
[2023-10-17] MEDS: FLUTICASONE PROPIONATE 0.05% NA SPR 16 GM BTL (*BKC) 1 SPRAY NASAL ×2 (08:44→21:48)
--- NOTE | 2023-10-17 16:08 | P.PNIM_ITS ---
Progress Note: A&P Assessment and Plan (1) Acute hypoxemic respiratory failure: Code(s): J96.01 - Acute respiratory failure with hypoxia Status: Acute Assessment and Plan: 10/14/2023: * Currently on 3 L nasal cannula * Crackles noted to all right greater than left lung kerns * Wean O2 to keep sat greater than 92% * Chest x-ray suggesting aspiration pneumonia * Patient started on Rocephin and azithromycin will switch to Unasyn and Flagyl considering the aspiration pneumonia * Patient currently on G-tube feedings, he does not receive any feedings by mouth 10/15/23: * Remains on 2 L nasal cannula * Continue to wean O2 to keep his sat greater than 92% * Continue with Unasyn and Flagyl * Will start Xopenex and Solu-Medrol today * Ordered Pep therapy and incentive spirometry * Will repeat chest x-ray in the morning 10/16/2023: * currently on 1.0 L nasal cannula * continue to wean oxygen to keep sat greater than 92% * Lung sounds harsh bilaterally today * continue with IV antibiotics, will likely transition to oral antibiotics tomorrow * continue breathing treatments and Solu-Medrol * continue incentive spirometry and pep therapy * Currently on Claritin * Will start Flonase today 10/17/2023: * Currently on 1 L nasal cannula * Continue to wean oxygen to keep sat greater than 92% * Continue with aggressive pulmonary toilet * Continue with breathing treatments * Solu-Medrol decreased to once a day * Will get home O2 evaluation tomorrow * Plan for discharge tomorrow on Augmentin and Solu-Medrol Dosepak * Will discuss with Case coordination about a nebulizer for at home. (2) Aspiration pneumonia: Qualifiers: Aspiration pneumonia type: unspecified Laterality: unspecified l aterality Lung location: unspecified part of lung Qualified Code(s): J69.0 - Pneumonitis due to inhalation of food and vomit Code(s): J69.0 - Pneumonitis due to inhalation of food and vomit Status: Acute Assessment and Plan: * See above (3) Tongue cancer: Code(s): C02.9 - Malignant neoplasm of tongue, unspecified Status: Chronic Assessment and Plan: * Of note, was diagnosed in 2010 has been G-tube dependent since then (4) Gastrointestinal tube present: Code(s): Z93.1 - Gastrostomy status Status: Acute Assessment and Plan: 10/14/2023: * Continue home tube feeding of [employer] 1.4 count Q 4 hour bolus feeds and water flushes * Medications per tube 10/15/23: * No change to current treatment plan Time Spent With Patient Time with patient: 15 - 25 minutes Subjective Date/time seen: 10/17/23 16:08 Interval history: 10/14/23: This is a 73-year-old male who presented to the hospital on 10/13/2023 with shortness of breath. Workup in the hospital included a chest x-ray which shown mild interstitial edema, peripheral opacities and patchy lower lung ground-glass opacities. EKG shows normal sinus rhythm with a rate of 92 and an incomplete right bundle branch block. Labs revealed a white blood cell count of 12.3, hemoglobin 13.8, hematocrit 41.2, sodium 133, chloride 96, magnesium 2.5, liver enzymes are normal, proBNP 426, troponin 0.030. UA was obtained and showed 1+ protein otherwise essentially normal. Blood cultures were obtained and are pending. Patient was given a dose of Zosyn while in the ED. On examination today patient is alert oriented x3, lying in the bed. Labs today revealed white blood cell count of 13.4, hemoglobin 13.2, hematocrit 38.9, sodium 134, blood sugars ranging 136-191, liver enzyme
--- NOTE | 2023-10-17 16:08 | PM.IMPN ---
Progress Note: A&P Assessment and Plan (1) Acute hypoxemic respiratory failure: Code(s): J96.01 - Acute respiratory failure with hypoxia Status: Acute Assessment and Plan: 10/14/2023: Currently on 3 L nasal cannula Crackles noted to all right greater than left lung kerns Wean O2 to keep sat greater than 92% Chest x-ray suggesting aspiration pneumonia Patient started on Rocephin and azithromycin will switch to Unasyn and Flagyl considering the aspiration pneumonia Patient currently on G-tube feedings, he does not receive any feedings by mouth 10/15/23: Remains on 2 L nasal cannula Continue to wean O2 to keep his sat greater than 92% Continue with Unasyn and Flagyl Will start Xopenex and Solu-Medrol today Ordered Pep therapy and incentive spirometry Will repeat chest x-ray in the morning 10/16/2023: currently on 1.0 L nasal cannula continue to wean oxygen to keep sat greater than 92% Lung sounds harsh bilaterally today continue with IV antibiotics, will likely transition to oral antibiotics tomorrow continue breathing treatments and Solu-Medrol continue incentive spirometry and pep therapy Currently on Claritin Will start Flonase today 10/17/2023: Currently on 1 L nasal cannula Continue to wean oxygen to keep sat greater than 92% Continue with aggressive pulmonary toilet Continue with breathing treatments Solu-Medrol decreased to once a day Will get home O2 evaluation tomorrow Plan for discharge tomorrow on Augmentin and Solu-Medrol Dosepak Will discuss with Case coordination about a nebulizer for at home. (2) Aspiration pneumonia: Qualifiers: Aspiration pneumonia type: unspecified Laterality: unspecified laterality Lung location: unspecified part of lung Qualified Code(s): J69.0 - Pneumonitis due to inhalation of food and vomit Code(s): J69.0 - Pneumonitis due to inhalation of food and vomit Status: Acute Assessment and Plan: See above (3) Tongue cancer: Code(s): C02.9 - Malignant neoplasm of tongue, unspecified Status: Chronic Assessment and Plan: Of note, was diagnosed in 2010 has been G-tube dependent since then (4) Gastrointestinal tube present: Code(s): Z93.1 - Gastrostomy status Status: Acute Assessment and Plan: 10/14/2023: Continue home tube feeding of [employer], [employer] 1.4 count Q 4 hour bolus feeds and water flushes Medications per tube 10/15/23: No change to current treatment plan Time Spent With Patient Time with patient: 15 - 25 minutes Subjective Date/time seen: 10/17/23 16:08 Interval history: 10/14/23: This is a 73-year-old male who presented to the hospital on 10/13/2023 with shortness of breath. Workup in the hospital included a chest x-ray which shown mild interstitial edema, peripheral opacities and patchy lower lung ground-glass opacities. EKG shows normal sinus rhythm with a rate of 92 and an incomplete right bundle branch block. Labs revealed a white blood cell count of 12.3, hemoglobin 13.8, hematocrit 41.2, sodium 133, chloride 96, magnesium 2.5, liver enzymes are normal, proBNP 426, troponin 0.030. UA was obtained and showed 1+ protein otherwise essentially normal. Blood cultures were obtained and are pending. Patient was given a dose of Zosyn while in the ED. On examination today patient is alert oriented x3, lying in the bed. Labs today revealed white blood cell count of 13.4, hemoglobin 13.2, hematocrit 38.9, sodium 134, blood sugars ranging 136-191, liver enzymes are normal, alk-phos 36. Patient endorses shortness of breath. Patient denies any fever, chills, nausea, vomiting, diarrhea, abdominal pain, chest pain. Lungs coarse on right lung kerns, he is currently on 3 L nasal cannula. He does not appear to be in any acute distress. Patient was started on Rocephin and Azithromycin and will switch to Unasyn and Flagyl considering this is more aspiration pneu
[2023-10-17] MEDS: AMOXICILLIN/CLAVULANATE K 875-125 MG TAB 1 TABLET PO (18:38)
[2023-10-17] MEDS: WATER FOR IRRIGATION, STERILE 1,000 ML BOTTLE 2000 ML (18:38)
[2023-10-17] MEDS: SODIUM CHLORIDE NASAL GEL 14.1 GM 1 APPLIC NASAL (21:48)
[2023-10-18] VITALS (14 sets, daily range): BP systolic 127–161; BP diastolic 79–90; PULSE 72–96; RESP 18–20; TEMP 36.1–36.5; O2SAT 85–96
[2023-10-18] MEDS: LEVALBUTEROL NEB 1.25 MG/3 ML INHALATION ×3 (01:50→14:14)
[2023-10-18 05:53] LABS: Basophils Percent Auto 0.4 % (0.2-1.2); Eosinophils Percent Auto 0.2 % (0-4.4); Hematocrit 41.2 % (42.0-52.0); Hemoglobin 13.4 g/dL (14.0-18.0); Immature Granulocyte Absolute 0.18 K/mm3 (0.00-0.031); Immature Granulocyte Percent A 1.7 % (0-0.5); Lymphocytes Absolute Auto 1.47 K/mm3 (0.9-3.2); Lymphocytes Percent Auto 13.8 % (18.3-44.2); Mean Corpuscular HGB Conc 32.5 g/dl (32-36); Mean Corpuscular Hemoglobin 31.9 pg (26-34); Mean Corpuscular Volume 98.1 fl (80-100); Mean Platelet Volume 10.4 fl (7.4-10.4); Monocytes Absolute Auto 1.3 K/mm3 (0.1-0.6); Neutrophils Absolute Auto 7.7 K/mm3 (1.3-6.7); Neutrophils Percent Auto 71.9 % (45.5-73.1); Platelet Count Result 203 k/mm3 (150-375); Red Cell Distribution Width 12.7 % (11.5-14.5); White Blood Count 10.7 K/mm3 (4.5-10.0)
[2023-10-18 06:08] LABS: Alanine Aminotransferase 16 U/L (6-50); Albumin Level 3.9 g/dL (3.5-5.1); Alkaline Phosphatase 49 U/L (38-126); Anion Gap 3 mmol/L (8-16); Aspartate Amino Transferase 21 U/L (17-59); Bilirubin,Total 0.4 mg/dL (0.2-1.3); Blood Urea Nitrogen 17 mg/dL (9-20); Calcium 8.9 mg/dL (8.4-10.2); Carbon Dioxide 31 mmol/L (22-30); Chloride 103 mmol/L (98-107); Estimated CRCL calculation 120 ml/min; Estimated Glomerular Filt Rate > 60; Glucose 97 mg/dL (65-110); Potassium 3.8 mmol/L (3.4-5.0); Sodium 137 mmol/L (137-145)
[2023-10-18] MEDS: LEVOTHYROXINE SODIUM 50 MCG TABLET FEED TUBE (07:06)
--- NOTE | 2023-10-18 08:01 | PM.DS ---
DS: Admitting Diagnosis Discharge Date 10/18/23 Admitting Diagnosis Acute hypoxic respiratory failure Aspiration pneumonia Dysphagia Tongue cancer G-tube present DS: Discharge Diagnosis Discharge Diagnosis (1) Acute hypoxemic respiratory failure: Code(s): J96.01 - Acute respiratory failure with hypoxia Status: Acute (2) Aspiration pneumonia: Qualifiers: Aspiration pneumonia type: unspecified Laterality: unspecified laterality Lung location: unspecified part of lung Qualified Code(s): J69.0 - Pneumonitis due to inhalation of food and vomit Code(s): J69.0 - Pneumonitis due to inhalation of food and vomit Status: Acute (3) Tongue cancer: Code(s): C02.9 - Malignant neoplasm of tongue, unspecified Status: Chronic (4) Gastrointestinal tube present: Code(s): Z93.1 - Gastrostomy status Status: Acute DS: Summary Hospital Course Reason for hospitalization: Acute hypoxic respiratory failure Asp Hospital Course: 10/14/23: This is a 73-year-old male who presented to the hospital on 10/13/2023 with shortness of breath.? Workup in the hospital included a chest x-ray which shown mild interstitial edema, peripheral opacities and patchy lower lung ground-glass opacities.? EKG shows normal sinus rhythm with a rate of 92 and an incomplete right bundle branch block.? Labs revealed a white blood cell count of 12.3, hemoglobin 13.8, hematocrit 41.2, sodium 133, chloride 96, magnesium 2.5, liver enzymes are normal, proBNP 426, troponin 0.030.? UA was obtained and showed 1+ protein otherwise essentially normal.? Blood cultures were obtained and are pending.? Patient was given a dose of Zosyn while in the ED. On examination today patient is alert oriented x3, lying in the bed.? Labs today revealed white blood cell count of 13.4, hemoglobin 13.2, hematocrit 38.9, sodium 134, blood sugars ranging 136-191, liver enzymes are normal, alk-phos 36.? Patient endorses shortness of breath.? Patient denies any fever, chills, nausea, vomiting, diarrhea, abdominal pain, chest pain.? Lungs coarse on right lung kerns, he is currently on 3 L nasal cannula.? He does not appear to be in any acute distress.? Patient was started on Rocephin and Azithromycin and will switch to Unasyn and Flagyl considering this is more aspiration pneumonia. 10/15/23: Tmax 99.9, currently on 2L NC, VSS. Labs reveal WBC 11.4, hemoglobin 12.8, hematocrit 37.8, sodium 136.? Blood culture showing no growth on preliminary read.? Will continue with Unasyn and Flagyl for now.? Will start Xopenex and Solu-Medrol today as right lung field sounds more harsh today than yesterday.? Overall he is improving. ?10/16/2023: ?T-max 99.3?, currently on 1.0 L nasal cannula, vital signs are stable? Labs today show white blood cell count of 9.1, hemoglobin 13.0, hematocrit 38.4, sodium 136, blood sugars ranging 117-137, liver enzymes are normal. blood cultures are still showing no growth? to date on preliminary.? Chest x-ray showing bibasilar airspace disease left worse than right, hazy left basilar airspace disease, possible minimal involvement in the right lower lobe, pneumonia versus pulmonary edema.? Patient states he is feeling much better today.? Lung still harsh to auscultation.? We will continue with breathing treatments Solu-Medrol as that has helped.? Continue with aggressive pulmonary toilet. 10/17/2023: Patient is afebrile, currently on 1 L nasal cannula, vital signs are stable.? Wheezing noted bilaterally on exam.? Labs today show a white count of 15.0, hemoglobin 12.7, hematocrit 38.8, sodium 133, blood sugar ranging 117-137.? Flagyl discontinued, Unasyn discontinued, patient started on Augmentin per tube.? Continue with aggressive pulmonary toilet.? Will deescalate Solu-Medrol down to once daily. 10/18/23: Labs showing WBC 10.7, Hgb 13.4, Hct 41.2, BG ranging 97-134. Patient remains afebrile, VSS, he is currently still on 1L NC with an O2 saturation of 92-
[2023-10-18] MEDS: amLODIPine BESYLATE 5 MG TABLET 10 MG FEED TUBE (10:47)
[2023-10-18] MEDS: SACCHAROMYCES BOULARDII 250 MG CAPSULE PO ×2 (10:47→14:20)
[2023-10-18] MEDS: AMOXICILLIN/CLAVULANATE K 875-125 MG TAB 1 TABLET PO (10:47)
[2023-10-18] MEDS: ENOXAPARIN 40 MG/0.4 ML SYRINGE SUB-Q (10:49)
[2023-10-18] MEDS: FLUTICASONE PROPIONATE 0.05% NA SPR 16 GM BTL (*BKC) 1 SPRAY NASAL (10:51)
[2023-10-18] MEDS: methylPREDNISolone SOD SUCC 40 MG VIAL IV PUSH (10:59)
--- NOTE | 2023-10-18 14:11 | HOMEO2EVAL ---
Evaluation was performed at [facility] Home Oxygen Evaluation RC: Home Oxygen (O2) Evaluation Start: 10/18/23 09:15 Freq: ONCE Status: Active Protocol: RPE Activity Type Activity Date Activity User E-sign Co-sign Detail Recorded Client Recorded Date Recorded By Document 10/18/23 12:00 MARIA EUGENIA [email or web address] 10/18/23 14:11 MARIA EUGENIA Document 10/18/23 12:02 MARIA EUGENIA [email or web address] 10/18/23 14:11 MARIA EUGENIA Document 10/18/23 12:06 MARIA EUGENIA [email or web address] 10/18/23 14:11 MARIA EUGENIA Document 10/18/23 12:07 MARIA EUGENIA [email or web address] 10/18/23 14:11 MARIA EUGENIA Document 10/18/23 12:08 MARIA EUGENIA [email or web address] 10/18/23 14:11 MARIA EUGENIA Document 10/18/23 12:15 MARIA EUGENIA [email or web address] 10/18/23 14:11 MARIA EUGENIA 10/18/23 10/18/23 10/18/23 12:00 12:02 12:06 Home O2 Evaluation [Oxygen] -Test Phase Resting Resting Exercise -Oxygen Delivery Room Air Nasal Cannula Nasal Cannula -Oxygen Flow Rate (L/min) 1 1 [Pulse Oximetry] -Pulse Oximetry (90-100 %) 87 L 90 85 L [Pulse Rate] -Pulse Rate (60-100 beats/min) 72 96 [Exercise] -Ambulation Distance (feet) -Ambulation Distance (meters) [Comments] -Home Oxygen Evaluation Comments [Charges] -Evaluation Charges O2 Evaluation by Pulmonary 10/18/23 10/18/23 10/18/23 12:07 12:08 12:15 Home O2 Evaluation [Oxygen] -Test Phase Exercise Exercise Resting -Oxygen Delivery Nasal Cannula Nasal Cannula Nasal Cannula -Oxygen Flow Rate (L/min) 2 3 1 [Pulse Oximetry] -Pulse Oximetry (90-100 %) 86 L 90 92 [Pulse Rate] -Pulse Rate (60-100 beats/min) 96 86 [Exercise] -Ambulation Distance (feet) 500 -Ambulation Distance (meters) 152.39 [Comments] -Home Oxygen Evaluation Comments Pt requires 1 liter home O2 at rest and 3 liters with activity [Charges] -Evaluation Charges
--- NOTE | 2023-10-18 15:14 | PCRCNOTE ---
HOME O2 EVAL DONE. 1 L REST, 3 L ACTIVITY. SET UP WITH [facility]. ALSO SENT ORDER FOR NEBULIZER SETUP/KIT PT REQUESTED POC. TANK IN ROOM FOR TRANSPORT HOME
== END 2023-10-18 16:35 | disposition home or self-care (01) | DRG 177 ==
LOC: ANHED 21:53 → ANH3MEDSUR 23:07
PROVIDERS: Emergency Medicine; Admitting Provider Internal Medicine; Emergency Provider Physician Assistant; Visit Provider Nurse Practitioner Acute Care
DX: J69.0 Pneumonitis due to inhalation of food and vomit (principal); J96.01 Acute respiratory failure with hypoxia; Z85.810 Personal history of malignant neoplasm of tongue; Z93.1 Gastrostomy status; Z87.891 Personal history of nicotine dependence
CPT/HCPCS: 36415; 36600; 71045; 71046; 80053; 81001; 82803; 82805; 83605; 83735; 83880; 84484; 85025; 85610; 85730; 87040; 93005; 94618; 94640; 94667; 96365; 99285; A9270; G0378; J0295; J0456; J0696; J1650; J1836; J2543; J2920; J7040

== ENCOUNTER 2024-10-17 19:59 | Emergency (ER) | payer MEDICARE, OTHER, SELFPAY ==
[2024-10-17] VITALS (9 sets, daily range): BP systolic 87–117; BP diastolic 53–70; PULSE 74–118; RESP 17–28; TEMP 37.2; O2SAT 87–96
--- NOTE | ~2024-10-17 | CT_ITS ---
EXAMINATION: CTA chest PE protocol DATE: 10/17/2024 21:20 INDICATION: Hypoxia. TECHNIQUE: Computed tomography angiography (CTA) of the chest was performed with 100 mL Omnipaque-350 intravenous contrast timed to evaluate the pulmonary arteries. Coronal maximum intensity projection 3D-reconstructions were created by the technologist. Automated exposure control and iterative reconst ruction technique were employed. The dose-length product was 306.10 mGy-cm. COMPARISON: Chest single view 10/18/2023 FINDINGS: There is mild scarring at the lung apices. There is mild emphysema. There are widespread ai rspace opacities and centrilobular nodules in all lobes with a lower lung predominance. There is muco us plugging in left lower lobe. There are trace pleural effusions. The heart size is normal. No peric ardial effusion. There is no pulmonary embolus. There is mild left hilar and mediastinal lymphadenopa thy, likely reactive. Calcified right hilar and mediastinal lymph nodes are consistent with old granu lomatous disease. There is a gastrostomy tube in expected position. There is mild thoracic spondylosi s. IMPRESSION: 1. Bilateral pneumonia with a lower lung predominance. 2. No pulmonary embolus. Sensitivity is moderately decreased by suboptimal contrast timing. 3. Mild left hilar and mediastinal lymphadenopathy, likely reactive. Reviewed, dictated and finalized at location A. HELPER [facility]UICE IMPRESSION: 1. Bilateral pneumonia with a lower lung predominance. 2. No pulmonary embolus. Sensitivity is moderately decreased by suboptimal cont rast timing. 3. Mild left hilar and mediastinal lymphadenopathy, likely reactive.
--- NOTE | 2024-10-17 20:01 | ECG_ITS ---
Test Date: 2024-10-17 20:02:12 Measurements Intervals [place] Rate: 111 P: 242 NM: 148 QRS: -47 QRSD: 87 T: 73 QT: 309 QTc: 421 Interpretive Statements ECTOPIC ATRIAL TACHYCARDIA POSSIBLE RIGHT VENTRICULAR CONDUCTION DELAY LEFT ANTERIOR FASCICULAR BLOCK ST ABNORMALITY IN INF/LAT LEADS- CONSIDER ISCHEMIA ABNORMAL ECG No previous ECG available for comparison Electronically Signed On 10-18-2024 06:38:04 MEDICAL TRANSCRIPTION EDITOR by Pedro Jensen D.O.
--- OUTSIDE RECORDS SUMMARY | 2024-10-17 20:09 | XMS_ITS | Encounter Summary ---
Author Organization [facility] Address [address] [place] [address] Care Team Providers Care Project Manager Finance Name Role Phone Sergio Menjivar MD Primary Care Provider [phone] Encounter Details Date Type Department Care Team (Late st Contact Info) Description 09/10/2024 Results Follow-Up [facility] [address] [place] [address] Chris Yost MD [address] [facility] [address] [place] [address] T4 FREE, TSH Social History Tobacco Use Types Packs/Day Years Used Date Smoking Tobacco: Former Cigarettes 2 30 0 08/27/1974 - 08/27/2004 Smokeless Tobacco: Never Alcohol Use Standard Drinks/Week Comments No 0 (1 standard drink = 0.6 oz pur e alcohol) Financial Resource Strain Answer Date R ecorded How hard is it for you to pa y for the very basics like food, housing, medical care, and heating? Not hard at all 02/10/2021 Food Insecurity Answer Date Recorded In the past 12 months, have you worried that your food would run out before you had money to buy more? Never true 02/10/2021 In the past 12 months, did y ou run out of food and didn't have money to buy more? Never true 02/10/2021 Transportation Needs Answer Date Record ed In the past 12 months, has l ack of transportation kept you from medical appointments or from getting medications? No 02/10/2021 Lack of Transportation (Non-Medical) Not on file 02/10/2021 Feeling Safe Answer Date Recorded Are you in a relationship wi th someone who hurts you emotionally and/or physically? 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 [place] [address] 12/02/2024 11:00 AM CDT Office Visit [facility] [place] [address] [address] Sergio Menjivar MD [address] [place] [address] 01/27/2025 9:20 AM CDT Office Visit [facility] - [place] [address] [place] [address] Casey Mcdaniel, [address] [place] [id number] 05/07/2025 11:00 AM CDT Office Visit [facility] - [place] [address] [place] [address] Rahel Mcfadden MD [address] [facility] [address] [place] [address] 06/18/2025 1:15 PM CDT Office Visit [facility] [address] [place] [address] Theresa London MD [address] [facility] [address] [place] [address] documented as of this encounter Visit Diagnoses Not on filedocumented in this encounter Additional Health Concerns Infection Onset Date Last Indicated Resolved Time R/O COVID-19 10/07/2024 10/07/2024 10/07/2024 12:4 6 PM BUTTER MAKER R/O C. diff 10/09/2024 10/09/2024 10/09/2024 10:3 4 AM BUTTER MAKER documented as of this encounter Care Teams Project Manager Finance Relationship Specialty Start Date End Date Sergio Menjivar MD [address] [place] [address] PCP - General Internal Medicine 07/11/12 documented as of this encounter
--- OUTSIDE RECORDS SUMMARY | 2024-10-17 20:09 | XMS_ITS | Referral Summary ---
Author Organization [facility] [address] Address [address] [place] [address] Care Team Providers Care Box Press Operator Name Role Phone Sergio Menjivar MD Primary Care Provider [phone] Allergies Active Allergy Reactions Criticality Noted Date Comments Albuterol Other (See comments) Low 10/06/2021 Chest pain Antihistimine Hives High 02/01/2011 Cat Dander Itching Low 10/09/2019 Wqdiebns-Nhmnjimrbd-Rojnuqkc n Hives High 02/01/2011 Unclassified Drug Nausea And Vomiting Low 1 White fish Medications cevimeline (EVOXAC) 30 mg capsule 1 Active sildenafiL (VIAGRA) 100 mg tablet Take 1 tablet (100 mg total) by mouth daily as needed 0 Active fluoride, sodium, 1.1 % paste BRUSH AT BEDTIME FOR 2 MINUTES DO NOT EAT OR DRINK FOR 30 MINUTES AFTER 4 Active fluticasone propionate (FLONASE) 50 mcg/actuation nasal spray USE 1 SPRAY INTRANASALLY EVERY 12 HOURS Active levalbuterol (XOPENEX) 1.25 mg/3 mL nebulizer solution INHALE 3 ML (1.25 MG) EVERY 8 HOURS NEEDED FOR SHORTNESS OF BREATH OR WHEEZING. Active levalbuterol (XOPENEX HFA) 45 mcg/actuation inhaler Inhale 1-2 puffs every 6 hours as needed 4 Active amLODIPine (NORVASC) 10 mg tablet Take 1 tablet (10 mg total) by mouth daily 4 Active levothyroxine (SYNTHROID) 75 mcg tablet TAKE 1 TABLET (75 MCG) BY MOUTH DAILY IN THE MORNING. 4 Active Active Problems Problem Noted Date Diagnosed Date Recurrent aspiration pneumonia (CMS/HCC) 024 Dysphagia, pharyngeal 11/29/2023 Cough 10/22/2023 Hypoxemia 10/22/2023 Wheezing 10/22/2023 Aspiration pneumonia of left lower lobe due to regurgitated food (CMS/HCC) 07/25/2022 Hypothyroidism 11/28/2021 Elevated blood protein 08/15/2021 Prediabetes 02/10/2021 Benign hypertension 05/28/2020 RBBB 05/14/2020 Dysphagia 10/26/2017 Elevated PSA 10/26/2017 Pulmonary infiltrates 10/26/2017 Tongue cancer 10/26/2017 ED (erectile dysfunction) 07/07/2014 Adenomatous polyp of colon 02/04/2013 Overview (11/29/2023): Colonoscopy 01/2013 (tito) adenomatous polyp x3, recommend repeat colonoscopy in 3-5 years. 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 Gender Identity Not on file Sexual Orientation Not on file Last Filed Vital Signs Vital Sign Reading Time Taken Comments Blood Pressure 138/76 11/29/2023 3:33 PM CDT Pulse 73 11/29/2023 3:33 PM CDT Temperature 36.7 C (98.1 F) 11/29/2023 3:33 PM CDT Respiratory Rate 22 11/29/2023 3:33 PM CDT Oxygen Saturation 97% 11/29/2023 3:33 PM CDT Inhaled Oxygen Concentration - - Weight 73.9 kg (163 lb) 11/29/2023 3:33 PM CDT Height 180.3 cm (5' 11 ) 11/29/2023 3:33 PM CDT Body Mass Index 22.73 11/29/2023 3:33 PM CDT Plan of Treatment Not on file Insurance MEDICARE MEDICARE [facility] [place] [id number] Care Teams Box Press Operator Relationship Specialty Start Date End Date Sergio Menjivar MD [address] [place] [phone] PCP - General Internal Medicine 07/04/21
--- OUTSIDE RECORDS SUMMARY | 2024-10-17 20:09 | XMS_ITS | Encounter Summary ---
Author Organization [facility] Address [address] [place] [address] Care Team Providers Care Materials Management Clerk Name Role Phone Sergio Menjivar MD Primary Care Provider [phone] Reason for Referral * CT Scan (Routine) - Open Specialty Diagnoses / Procedures Referred By Flavia rios Referred To Contact Diagnoses Mediastinal lymphadenopathy Pneumonia of left lower lobe due to infectious organism Procedures CT CHEST W CONTRAST Sergio Menjivar MD [address] [place] [address] Phone: tel: fax: Referral ID Status Reason Start Date Expiration Date Visits Re quested Visits Authorized [id number] Open 10/16/2024 11/16/2025 1 1 AL PHYSIOLOGY TEACHER Reason for Visit * Reason Comments Follow Up Er follow up. Encounter Details Date Type Department Care Team (Latest Contact Info) Description 10/16/2024 3:30 PM ANIMAL PHYSIOLOGY TEACHER Video Visit [facility] Internal Medicine Medical [place] A [facility] [address] [address] Sergio Menjivar MD [address] [place] [address] Mediastinal lymphadenopathy (Primary Dx); Pneumonia of left lower lobe due to infectious organism; Tongue cancer (CMS/HCC) Social History Tobacco Use Types Packs/Day Years [...] who hurts you emotionally and/or physically? 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 Not on file Not on file documented as of this encounter Last Filed Vital Signs Vital Sign Reading Time Taken Comments Blood Pressure - - Pulse - - Temperature - - Respiratory Rate - - Oxygen Saturation - - Inhaled Oxygen Concentration - - Weight 70.3 kg (155 lb) 10/16/2024 3:07 PM ANIMAL PHYSIOLOGY TEACHER Height 180.3 cm (5' 11 ) 10/16/2024 3:07 PM ANIMAL PHYSIOLOGY TEACHER Body Mass Index 21.62 10/16/2024 3:07 PM ANIMAL PHYSIOLOGY TEACHER documented in this encounter Progress Notes * Sergio Menjivar MD - 10/16/2024 3:07 PM CST Patient's identity confirmed yes Patient gave verbal consent to have these services billed to their insurance and expressed understanding that co-insurance and deductible may apply: yes Patient was located at home. This encounter was completed via two-way synchronous audio and video communication. Patient is a 74 y.o. male here for following Pneumonia: Went to hospital with cough, shortness of breath and fever, also found out to have hypoxemia, diagnosed with pneumonia, started on IV antibiotic, sent home with oral antibiotic, now feeling much improved, denies any complaints Hospital Follow Up Checklist DC date: 10/12/24 Hospital discharge summary / diagnosis reviewed with the patient Medication reconciliation performed Tests pending at time of discharge reviewed Any needed follow up testing or specialty consultation discussed Discussed how to reach us after office hours Place exchange information in AVS Discussed healthcare directive / DPA for healthcare issues If > 80 or chronically ill Code Status discussed Follow up appointment provided Past Medical History: Past Medical History: Diagnosis Date Acute respiratory failure with hypoxia (CMS/HCC) Cancer (CMS/HCC) 01/2011 Base of Tongue with Lymph Node Removal Cancer of base of tongue (CMS/HCC) Chest tightness 12/07/2021 Community acquired pneumonia Cough 10/22/2023 COVID-19 vaccine series completed HTN (hypertension) 2019 Hyperlipidemia no meds Hypothyroidism Protein-calorie malnutrition, moderate 11/25/2021 Sepsis due to pneumonia (CMS/HCC) 03/14/2024 Past Surgical History: Past Surgical History: Procedure Laterality Date HX ESOPHAGOGASTRODUODENOSCOPY N/A 09/13/2021 checkout ESOPHAGOGASTRODUODENOSCOPY performed by Edi Gutiérrez MD at [facility] GI LAB HX NECK SURGERY 03/10/2011 NECK DISSECTION performed by ZOILA ROMERO at [facility] OR MAIN NE COLONOSCOPY FLX DX W/COLLJ SPEC WHEN PFRMD 02/04/2013 COLONOSCOPY performed by Edi Gutiérrez MD at [facility] GI LAB NE COLONOSCOPY FLX DX W/COLLJ SPEC WHEN PFRMD N/A 12/27/2017 COLONOSCOPY performed by Edi Gutiérrez MD at [facility] GI LAB NE COLONOSCOPY FLX DX W/COLLJ SPEC WHEN PFRMD N/A 07/26/2023 COLONOSCOPY performed by Edi Gutiérrez MD at [facility] GI LAB NE EGD PERCUTANEOUS PLACEMENT GASTROSTOMY TUBE N/A 03/17/2022 GASTROSTOMY TUBE PERCUTANEOUS PLACEMENT ENDOSCOPIC performed by Edi Gutiérrez MD at [facility] GI LAB NE EGD PERCUTANEOUS PLACEMENT GASTROSTOMY TUBE N/A 07/26/2023 GASTROSTOMY TUBE PERCUTANEOUS PLACEMENT ENDOSCOPIC performed by Edi Gutiérrez MD at [facility] GI LAB NE ESOPHAGOGASTRODUODENOSCOPY TRANSORAL DIAGNOSTIC N/A 12/27/2017 ESOPHAGOGASTRODUODENOSCOPY performed by Edi Gutiérrez MD at [facility] GI LAB NE ESOPHAGOGASTRODUODENOSCOPY TRANSORAL DIAGNOSTIC N/A 02/24/2019 ESOPHAGOGASTRODUODENOSCOPY performed by Edi Gutiérrez MD at [facility] GI LAB NE ESOPHAGOGASTRODUODENOSCOPY TRANSORAL DIAGNOSTIC N/A 05/03/2021 ESOPHAGOGASTRODUODENOSCOPY performed by Edi Gutiérrez MD at [facility] GI LAB NE ESOPHAGOGASTRODUODENOSCOPY TRANSORAL DIAGNOSTIC N/A 03/17/2022 ESOPHAGOGASTRODUODENOSCOPY performed by Edi Gutiérrez MD at [facility] GI LAB NE ESOPHAGOGASTRODUODENOSCOPY TRANSORAL DIAGNOSTIC N/A 09/14/2022 ESOPHAGOGASTRODUODENOSCOPY performed by Edi Gutiérrez MD at [facility] GI LAB NE ESOPHAGOSCOPY FLEXIBLE TRANSORAL DIAGNOSTIC 02/24/2011 ESOPHAGOSCOPY performed by ZOILA ROMERO at [facility] OR MAIN NE UNLISTED PROCEDURE LARYNX 02/24/2011 LARYNGOSCOPY MICRO performed by ZOILA ROMERO at [facility] OR MAIN NE UNLISTED PROCEDURE LARYNX 03/10/2011 LARYNGOSCOPY MICRO WITH CO2 LASER performed by ZOILA ROMERO at [facility] OR MAIN NE UNLISTED PX SKIN MUC MEMBRANE & SUBQ TISSUE N/A 07/03/2019 LOCAL CYST LESION MASS EXCISION performed by Amaury Arana MD at [facility] OR [facility] Current Medications: Current Outpatient Medications Medication Sig Dispense Refill Lidocaine 4 % Adhesive Patch, Medicated Apply to right chest. Apply only once for up to 12 hours within a 24 hour period. Patches may be cut into smaller sizes with scissors prior to the removal of the release liner. Clothing may be worn over the area of application. 14 Patch 1 guaiFENesin (Mucinex Fast-Max Chest-Congest) 100 mg/5 mL solution Take 10 mL by mouth every 12 hours. levothyroxine 75 mcg tablet Take 1 Tablet (75 mcg) by mouth daily in the morning. 90 Tablet 1 sodium chloride 7 % Solution for Nebulization TAKE 2 ML BY INHALATION 2 TIMES DAILY. 240 mL 1 cevimeline (EVOXAC) 30 mg capsule TAKE ONE CAPSULE (30MG) BY MOUTH 3 TIMES DAILY 270 Capsule 2 pantoprazole (PROTONIX) 40 mg Tablet, Delayed Release (E.C.) Take 1 Tablet (40 mg) by mouth daily. 90 Tablet 3 levalbuterol HFA (XOPENEX HFA) 45 mcg/Actuation HFA Aerosol Inhaler Take 2 Puffs by inhalation every 6 hours. (Patient taking differently: Take 2 Puffs by inhalation every 6 hours as needed.) 15 Gram4 sildenafiL (VIAGRA) 100 mg tablet Take 1 Tablet (100 mg) by mouth 1 time daily as needed for Erectile Dysfunction. 30 Tablet 4 amLODIPine (NORVASC) 10 mg tablet TAKE 1 TABLET (10 MG) BY MOUTH DAILY. 100 Tablet 3 ipratropium bromide (ATROVENT) 0.02 % Solution Take 0.5 mg by inhalation every 12 hours. loratadine (CLARITIN) 10 mg tablet Take 10 mg by mouth daily. azelastine (ASTELIN) 137 mcg/actuation nasal spray Administer 2 Sprays in each nostril 2 times daily. 30 mL 5 fluticasone propionate (FLONASE) 50 mcg/spray Howell, Suspension nasal inhaler Administer 2 Sprays in each nostril daily. 16 Gram 11 No current facility-administered medications for this visit. Medication Allergies: Allergies Allergen Reactions Albuterol Other (See Comments) Chest pain Cat Dander Itching Unclassified Drug Nausea and Vomiting White fish Family History: Family History Problem Relation Name Age of Onset Other Father Ashlee Hinds live cancer Cancer Father Ashlee Hinds Other Mother Anh Hinds Bladder Cancer Mother Anh Hinds Diabetes Neg Hx Heart Failure Neg Hx Hypertension Neg Hx Asthma Neg Hx Emphysema Neg Hx Bronchitis Neg Hx Lung Cancer Neg Hx Mesothelioma Neg Hx Celiac Disease Neg Hx Inflammatory Bowel Disease Neg Hx Crohn's Disease Neg Hx Ulcerative Colitis Neg Hx Colon Cancer Neg Hx Social History: Social History Tobacco Use Smoking status: Former Current packs/day: 0.00 Average packs/day: 2.0 packs/day for 30.0 years (60.0 ttl pk-yrs) Types: Cigarettes Start date: 08/27/1974 Quit date: 08/27/2004 Years since quittin.1 Smokeless tobacco: Never Substance Use Topics Alcohol use: No Last Menstrual History: No LMP for male patient. Review of Systems: GEN: No fever, chills or night sweats Skin: No rashes or eruptions Eyes: no visual disturbances ENT: As per HPI Lungs: As per HPI Cardiac: No chest pain GI: No n/v or abdominal pain Physical Exam: Ht 5' 11 (1.803 m) Wt 70.3 kg (155 lb) BMI 21.62 kg/m?? General: Alert, cooperative & in no distress Lungs: No respiratory distress Neurologic: Grossly intact Assessment and Plan: 1. Pneumonia/lymphadenopathy: Overall improving Completed antibiotic On oxygen Repeat CT chest Pulmonary follow-up Following up with ENT The importance of the following health maintenance issues discussed Colon cancer screen Prostate cancer screen Lung cancer screening AAA screen Vaccinations discussed Appropriate medications prescribed (see detailed AVS). Appropriate patient instructions provided (see detailed AVS). Follow-up as I have indicated. Medications and options explained to include common side effects. Understanding of medications, course, diagnosis, and expectations were expressed. Depression Screen Positive: PHQ-2 score >= 3 or PHQ-9 score >= 9 PHQ-2 Total: 0 (10/16/2024 3:06 PM) DEPRESSION PLAN OF CARE His depression screen was negative. (PHQ2 <3, PHQ9 <10, [place] <11) Advance Care Planning Primary Emergency Contact: VINNIE HINDS, Relation: Spouse Secondary Emergency Contact: TRICIA HINDS, Relation: Daughter Is the person(s) listed above who you would want to be your trusted decision maker? Yes Have you discussed your healthcare wishes with them? yes TREATMENT WISHES What daily activities or functions are most important for your quality of life?: NA When time is limited to days, weeks or months, where do you want to be?: NA Other patient wishes: NA CODE STATUS Code Status: Prior Most Recent Code Statuses Not Including Current Date Active Date Inactive Code Status Order ID Comments User Context 10/07/2024 1533 10/12/2024 1558 NO CPR (In Event of Cardiopulmonary Arrest) [id number] Erin Egan MD ED 06/03/20248 06/07/2024 1632 Full Code [id number] Zahra Garrett MD ED Only showing the last 2 code statuses. NA Discussed 10/16/2024 with NA . Participation was voluntary, and the nature of Advance Directives waspart of the discussion. Next steps : INEZ Menjivar MD AL PHYSIOLOGY TEACHER documented in this encounter Plan of Treatment Upcoming Encounters Date Type Department Care Team (Late st Contact Info) Description 10/30/2024 12:45 PM ANIMAL PHYSIOLOGY TEACHER Office Visit [facility] EAR, NOSE AND THROAT [facility] [address] [place] [address] Zoila Romero MD [address] [place] [address] 12/02/2024 11:00 AM CDT Office Visit [facility] Internal Medicine Medical [place] A [address] [address] Sergio Menjivar MD [address] [place] [address] 01/27/2025 9:20 AM CDT Office Visit [facility] Pulmonology - [facility] [address] [place] [address] [place] [address] [place] [address] 05/07/2025 11:00 AM CDT Office Visit [facility] UROLOGY [facility] [address] [place] [address] Rahel Mcfadden MD [address] [place] [address] 06/18/2025 1:15 PM CDT Office Visit [facility] Heart and Vascular At [facility] [address] [place] [address] Theresa London MD [address] [place] [id number] Scheduled Orders Name Type Priority Associated Diagnoses Orde r Schedule CT CHEST W CONTRAST Imaging Routine Mediastinal lymphadenopathy Pneumonia of left lower lobe due to infectious organism Expected: 11/25/2024, Expires: 10/16/2025 documented as of this encounter Visit Diagnoses Diagnosis Mediastinal lymphadenopathy- Primary Enlargement of lymph nodes Pneumonia of left lower lobe due to infectious organism Tongue cancer (CMS/HCC) Malignant neoplasm of tongue, unspecified site documented in this encounter Care Teams Materials Management Clerk Relationship Specialty Start Date End Date Sergio Menjivar MD [address] [place] [address] PCP - General Internal Medicine 07/11/12 documented as of this encounter
--- OUTSIDE RECORDS SUMMARY | 2024-10-17 20:09 | XMS_ITS | Clinical Summary ---
Author Organization [facility] [address] Address [address] [place] [address] Care Team Providers Care Retail Loss Prevention Specialist Name Role Phone Sergio Menjivar MD Primary Care Provider [phone] Allergies Active Allergy Reactions Criticality Noted Date Comments Albuterol Other (See comments) Low 10/06/2021 Chest pain Antihistimine Hives High 02/01/2011 Cat Dander Itching Low 10/09/2019 Yokueehe-Wjyrlawhwd-Eatmumji n Hives High 02/01/2011 Unclassified Drug Nausea [...] 3-5 years. 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 Gender Identity Not on file Sexual Orientation Not on file Obstetrics History Last Filed Vital Signs Vital Sign Reading [...] 11/29/2023 3:33 PM CDT Plan of Treatment Health Maintenance Due Date Last Done Comments Colon Cancer Screening-Colonoscopy 1950 Depression Screening 1952 Fall Risk Assessment 1950 Hepatitis C Screening 1952 Hepatitis B Screening 1970 Abdominal Aortic Aneurysm (A AA) Screen 2017 Well Visit 65+ 2017 Covid-19 Vaccine (5 - 2023-2 5 season) 2024 06/09/2022, 06/21/2021, 11/02/2020, Additional history exists Influenza Vaccine (#1) 2024 , 05/28/2019, 04/22/2018, Additional history exists DTaP/Tdap/Td Vaccine (3 - Td or Tdap) 02/10/2031 02/10/2021, 02/01/2011 Zoster Vaccine Completed 08/05/2019, 09/2018, 04/27/2015, Additional history exists Pneumococcal vaccine 65+ Completed 11/12/2019, 08/2018 Insurance MEDICARE MEDICARE [facility] Care Teams Retail Loss Prevention Specialist Relationship Specialty Start Date End Date Sergio Menjivar MD [address] [place] [phone] PCP - General Internal Medicine 07/04/21
--- OUTSIDE RECORDS SUMMARY | 2024-10-17 20:09 | XMS_ITS | Encounter Summary ---
Author Organization [facility] Address [address] [place] [address] Care Team Providers Care [place] Former Machine Name Role Phone Sergio Menjivar MD Primary Care Provider [phone] Reason for Visit * Reason Comments Courtesy Call Encounter Details Date Type Department Care Team (Late st Contact Info) Description 10/16/2024 Telephone [facility] Internal Medicine Medical [place] A [facility] [address] [address] Sergio Menjivar MD [address] [place] [address] Courtesy Call Social History Tobacco Use Types Packs/Day Years [...] on file Legal Sex Male 6:02 AM QUALIFIED CRAFT WORKER ELECTRICIAN Gender Identity Not on file Sexual Orientation Not on file 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 All questions was answered for the patient IFIED CRAFT WORKER ELECTRICIAN * Telephone Encounter - Luis Yanez - 10/16/2024 3:38 PM CST Copied from [facility] #[id number]. Topic: Patient or Caregiver Communication Request >> Oct 16, 2024 3:36 PM Luis Martínez wrote: Video Visit Delay Caller Name: Ashlee Hinds Jr Patient/Caregiver Callback Number: Telephone Information: Call Notes: patient calling to report video visit delay, he is on the call waiting to be seen Patient Access Instructions 1. Warm transfer to Inspector [employer] 2. Select Resolve Reason and click Close CRM IFIED CRAFT WORKER ELECTRICIAN documented in this encounter Plan of Treatment Upcoming Encounters Date Type Department Care Team (Late st Contact Info) Description 10/30/2024 12:45 PM QUALIFIED CRAFT WORKER ELECTRICIAN Office Visit [facility] EAR, [facility]SE AND THROAT [facility] [address] [place] [address] Chris Yost MD [address] [place] [address] 12/02/2024 11:00 AM CDT Office Visit [facility] Internal Medicine Medical [place] A [address] [facility] [address] [address] Sergio Menjivar MD [address] [facility] [address] [place] [address] 01/27/2025 9:20 AM CDT Office Visit [facility] Pulmonology - [facility] [address] [facility] [address] [place] [address] [place] [address] [place] [address] 05/07/2025 11:00 AM CDT Office Visit [facility] UROLOGY - [place] [address] [facility] [address] [place] [address] Rahel Mcfadden MD [address] [place] [address] 06/18/2025 1:15 PM CDT Office Visit [facility] Heart and Vascular At [facility] [address] [place] [address] Theresa London MD [address] [facility] [address] [place] [address] documented as of this encounter Visit Diagnoses Not on filedocumented in this encounter Care Teams [place] Former Machine Relationship Specialty Start Date End Date Sergio Menjivar MD [address] [facility] [address] [place] [phone] PCP - General Internal Medicine 07/11/12 documented as of this encounter
--- OUTSIDE RECORDS SUMMARY | 2024-10-17 20:09 | XMS_ITS ---
Author Organization [facility] Address [address] [place] [address] Phone Care Team Providers Care Energy Systems Laboratory Director Name Role Phone Sergio Menjivar MD Primary Care Provider [phone] Active Problems Patient Care Coordination No te Formatting of this note migh t be different from the original. Theresa London MD- [facility] ( [facility]) GKS-Ojxhfgj-Irgkbjshj Problem Noted Date Diagnosed Date Mediastinal lymphadenopathy 10/16/2024 Acute hypoxic respiratory failure 10/07/2024 Aspiration pneumonia 10/07/2024 Shortness of breath 03/15/2024 Hx of tongue cancer 03/05/2024 Perennial allergic rhinitis 03/05/2024 Abnormal PFT 02/27/2024 Hypoxemia 10/22/2023 Wheezing 10/22/2023 Aspiration pneumonia of left lower lobe due to regurgitated food 07/25/2022 Acquired hypothyroidism 11/28/2021 Protein-calorie malnutrition, moderate Elevated blood protein 08/15/2021 Prediabetes 02/10/2021 Benign hypertension 05/28/2020 RBBB 05/14/2020 Pneumonia due to infectious organism 09/27/2018 Tongue cancer - S/P surgery (Dr. Yost) chemo (Dr. Johnson) & radiation 10/26/2017 Elevated PSA - advised FU with Dr. Mcfadden 10/26 Oropharyngeal dysphagia 10/26/2017 Hyperlipidemia 09/28/2016 ED (erectile dysfunction) 07/07/2014 Adenomatous polyp of colon 02/04/2013 Overview (02/04/2013): Colonoscopy 01/2013 (tito) adenomatous polyp x3, recommend repeat colonoscopy in 3-5 years. GERD (gastroesophageal reflux disease) 2 Recurrent pneumonia Dysphagia, pharyngeal Current Treatment and Therapy Plans No current plan information found. Past Treatment and Therapy Plans No past plan information found. Lifetime Dose Tracking * Chemical Lifetime Dose Automatic Entry Manual Entr y Effective Dose 105.36 mSv 105.36 mSv 0 mSv Total DLP 8,685.02 DLP 8,685.02 DLP 0 DLP CTDIvol Max 253.18 mGy 253.18 mGy 0 mGy CTDIvol Min 198.8 mGy 198.8 mGy 0 mGy Resolved Problems Problem Noted Date Diagnosed Date Resolved Date Lethargic 03/14/2024 10/16/2024 Sepsis due to pneumonia 03/14/202405/27 Cough 10/22/2023 06/12/2024 Hyponatremia 05/17/2020 06/30/2020 Sugar blood level increased 01/29/2019 02/10/2021 Hyperkalemia 09/27/2018 06/30/2020 Head and neck cancer 04/18/2011 011 Squamous cell carcinoma 03/11/2011 03/09/2017 Severe sepsis with septic shock 12/07/2021 Acute respiratory failure with hypoxia 07/09/2023
--- OUTSIDE RECORDS SUMMARY | 2024-10-17 20:09 | XMS_ITS | Encounter Summary ---
Author Organization [facility] Address [address] [place] [address] Care Team Providers Care Physics Teacher Name Role Phone Sergio Menjivar MD Primary Care Provider [phone] Reason for Visit * Reason Onset Date Comments Red flag-fever 09/17/2023 Encounter Details Date Type Department Care Team (Late st Contact Info) Description 09/17/2023 Telephone [facility] Internal Medicine Medical [place] [facility] [address] [address] Sergio Menjivar MD [address] [place] [address] Red flag-fever Social History Tobacco Use Types Packs/Day Years [...] who hurts you emotionally and/or physically? 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 Please reply with recommendation to his MMM as no one will be in office to call back. ENGINE OPERATOR documented in this encounter Plan of Treatment Upcoming Encounters Date Type Department Care Team (Late st Contact Info) Description 10/30/2024 12:45 PM DECK ENGINE OPERATOR Office Visit [facility] EAR, NOSE AND THROAT JOCY Joe [facility] [address] [place] [address] Chris Yost MD [address] [place] [address] 12/02/2024 11:00 AM CDT [facility] Visit [facility] Internal Medicine Medical [place] A [address] [address] Sergio Menjivar MD [address] [facility] [address] [place] [address] 01/27/2025 9:20 AM CDT [facility] - [facility] [address] [place] [address] [place] [address] [place] [address] 05/07/2025 11:00 AM CDT Office Visit [facility] UROLOGY - [place] [address] [place] [address] Rahel Mcfadden MD [address] [facility] [address] [place] [address] 06/18/2025 1:15 PM CDT [facility] Heart [facility] At [facility] [address] [place] [address] Theresa London MD [address] [facility] [address] [place] [address] documented as of this encounter Visit Diagnoses Not on filedocumented in this encounter Additional Health Concerns Infection Onset Date Last Indicated Resolved Time R/O COVID-19 03/14/2024 03/14/2024 03/14/2024 7:40 PM CDT R/O COVID-19 06/03/2024 06/03/2024 06/03/2024 6:58 PM CDT R/O COVID-19 10/07/2024 10/07/2024 10/07/2024 12:4 6 PM DECK ENGINE OPERATOR R/O C. diff 10/09/2024 10/09/2024 10/09/2024 10:3 4 AM DECK ENGINE OPERATOR documented as of this encounter Care Teams Physics Teacher Relationship Specialty Start Date End Date Sergio Menjivar MD [address] [facility] [address] [place] [address] PCP - General Internal Medicine 07/11/12 documented as of this encounter
--- OUTSIDE RECORDS SUMMARY | 2024-10-17 20:09 | XMS_ITS | Encounter Summary ---
Author Organization [facility] Address [address] [place] [address] Care Team Providers Care Barrel Inspector Tight Name Role Phone Sergio Menjivar MD Primary Care Provider [phone] Reason for Visit * Reason Onset Date Comments Erroneous encounter-disregard 09/17/2023 Encounter Details Date Type Department Care Team (Late st Contact Info) Description 09/17/2023 Telephone [facility] Internal Medicine Medical [place] A [facility] [address] [address] Sergio Menjivar MD [address] [place] [address] Erroneous encounter-disregard Social History Tobacco Use Types Packs/Day Years [...] on file Legal Sex Male 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 [place] [address] 12/02/2024 11:00 AM CDT Office Visit [facility] Internal Medicine Medical [place] A [address] [address] Sergio Menjivar MD [address] [place] [address] 01/27/2025 9:20 AM CDT Office Visit [facility] Pulmonology - [facility] [address] [place] [address] [place] [address] [place] [address] 05/07/2025 11:00 AM CDT Office Visit [facility] [address] [place] [address] Rahel Mcfadden MD [address] [facility] [address] [place] [address] 06/18/2025 1:15 PM CDT Office Visit [facility] Heart and Vascular At [facility] [address] [place] [address] Theresa London MD [address] [facility] [address] [place] [address] documented as of this encounter Visit Diagnoses Not on filedocumented in this encounter Additional Health Concerns Infection Onset Date Last Indicated Resolved Time R/O COVID-19 03/14/2024 03/14/2024 03/14/2024 7:40 PM CDT R/O COVID-19 06/03/2024 06/03/2024 06/03/2024 6:58 PM CDT R/O COVID-19 10/07/2024 10/07/2024 10/07/2024 12:4 6 PM ELEMENTARY ELL TEACHER R/O C. diff 10/09/2024 10/09/2024 10/09/2024 10:3 4 AM ELEMENTARY ELL TEACHER documented as of this encounter Care Teams Barrel Inspector Tight Relationship Specialty Start Date End Date Sergio Menjivar MD [address] [place] [address] PCP - General Internal Medicine 07/11/12 documented as of this encounter
--- OUTSIDE RECORDS SUMMARY | 2024-10-17 20:09 | XMS_ITS | Encounter Summary ---
Author Organization [facility] Address [address] [place] [address] Care Team Providers Care Patient Resource Specialist Name Role Phone Sergio Menjivar MD Primary Care Provider [phone] Reason for Visit * Reason Comments Clinical Consult Before Scheduling Encounter Details Date Type Department Care Team (Late st Contact Info) Description 10/07/2024 Telephone [facility] Internal Medicine Medical [facility] [address] [address] Sergio Menjivar MD [address] [place] [address] Clinical Consult Before Scheduling Social History Tobacco Use Types Packs/Day Years [...] on file Legal Sex Male 6:02 AM HAND HOSE CUTTER Gender Identity Not on file Sexual Orientation Not on file 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 Gema states that patient's oxygen level is in the 80s-she has increased his oxygen to 4L/min and oxygen saturation remains at 82%. Per spouse, patient is on tube feeds, placing him at risk for aspiration. Spouse states patient was hospitalized Patient is sitting up and talking. Gema states patient's color is paige and he isexhibiting some confusion. Gema advised that patient needs to be seen in ED for evaluation. Patient will go to the ED. Routed to PCP as FYI. HOSE CUTTER * Telephone Encounter - Amy Beltran - 10/07/2024 8:42 AM HAND HOSE CUTTER Copied from [facility] #[id number]. Topic: Symptomatic Care >> Oct 07, 2024 8:40 AM Amy Mckinney wrote: Caller has new symptoms and is seeking care. Age Range/Symptom: Adult: 18+ - Other Symptoms: Low Oxygen Does patient have any of the following other urgent symptoms: Confusion, change in mental status Caller Name: Gema (Spouse) Callback Number: [phone] Call Notes: Oxygen level is 80s has patient on 3 level and stated that its still not going up much,stated looks a little on the montalvo side and a bit brain fog Transferred to PCN line and Justina answered call. HOSE CUTTER documented in this encounter Plan of Treatment Upcoming Encounters Date Type Department Care Team (Late st Contact Info) Description 10/30/2024 12:45 PM HAND HOSE CUTTER Office Visit [facility] EAR, NOSE AND THROAT [facility] [address] [facility] [address] [place] [address] Chris Yost MD [address] [facility] [address] [place] [address] 12/02/2024 11:00 AM CDT Office Visit [facility] Internal Medicine Medical [place] A [facility] [address] [address] Sergio Menjivar MD [address] [place] [address] 01/27/2025 9:20 AM CDT Office Visit [facility] Pulmonology - [facility] [address] [place] [address] [place] [address] [place] [address] 05/07/2025 11:00 AM CDT Office Visit [facility] UROLOGY - [place] [address] [address] [place] [address] Rahel Mcfadden MD [address] [facility] [address] [place] [address] 06/18/2025 1:15 PM CDT Office Visit [facility] Heart and Vascular At [facility] [address] [place] [address] Theresa London MD [address] [facility] [address] [place] [address] documented as of this encounter Visit Diagnoses Not on filedocumented in this encounter Additional Health Concerns Infection Onset Date Last Indicated Resolved Time R/O COVID-19 10/07/2024 10/07/2024 10/07/2024 12:4 6 PM HAND HOSE CUTTER R/O C. diff 10/09/2024 10/09/2024 10/09/2024 10:3 4 AM HAND HOSE CUTTER documented as of this encounter Care Teams Patient Resource Specialist Relationship Specialty Start Date End Date Sergio Menjivar MD [address] [place] [address] PCP - General Internal Medicine 07/11/12 documented as of this encounter
--- OUTSIDE RECORDS SUMMARY | 2024-10-17 20:09 | XMS_ITS | Encounter Summary ---
Author Organization [employer] Address [address] [place] [address] Care Team Providers Care Tugger Operator Name Role Phone Sergio Menjivar MD Primary Care Provider [phone] Reason for Visit * Reason Onset Date Comments Anitha Proposal Analyst 10/17/2024 Encounter Details Date Type Department Care Team (Late st Contact Info) Description 10/17/2024 Telephone [facility] [address] [place] [address] Guille [facility] Proposal Analyst Social History Tobacco Use Types Packs/Day Years [...] on file Legal Sex Male 6:02 AM MANUFACTURER Gender Identity Not on file Sexual Orientation Not on file 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 Pt O2 was weaned down to 1LNC. Pt was doing well until today. Per patient did a tube feeding around 1300 and then laid down shortly afterwards. Patient states that he did feel like he was having some acid reflux. Patient's came home around 1630 and found that patient's O2 sats were below 90 and so patient's O2 was increased from 1 L nasal cannula to5 L nasal cannula. Patient's O2 sat remained below 90 even on the 5 L nasal cannula. Patient denies any shortness of breath or lightheadedness or dizziness. Patient does report that he is coughing more than normal and is coughing stuff out. Pt states that he is having some chest pain at this time. Pt states chest pain is a 4/10 burning. RN verified with that O2 was connected and flowing properly. Vitals and Assessment: Patient is A&Ox4; speaking in clear and complete sentences w/ this RN during call. VS: [id number] 5LNC Plan: Consulted with Dr. James. Patient's advised to take patient to the emergency room for assessment and treatment. Patient's states that she does not want to call the ambulance because they will not take patient to [facility] so she is going to attempt to drive patient to the emergency room. Per patient patient has not having respiratory distress at this time and feels like they can make it via private vehicle. RN advised risks and benefits of transportation by EMS and states that she is noted to take patient via private vehicle with O2 running. Discussed when to seek treatment Understanding of discussion voiced Instructed to call with any concerns. Note routed to primary care office pool. Visit was completed by phone unless otherwise noted with video/screen capture within the note. Guille Carr RN [facility] FACTURER documented in this encounter Plan of Treatment Upcoming Encounters Date Type Department Care Team (Late st Contact Info) Description 10/30/2024 12:45 PM MANUFACTURER Office Visit [facility] EAR, NOSE AND THROAT [facility] [address] [facility] [address] [place] [address] Chris Yost MD [address] [facility] [facility] [address] [place] [address] 12/02/2024 11:00 AM CDT Office Visit [facility] Internal Medicine Medical [place] A [facility] [address] [address] Sergio Menjviar MD [address] [facility] [address] [place] [address] 01/27/2025 9:20 AM CDT Office Visit [facility] Pulmonology - [facility] [address] [facility] [address] [place] [address] [place] [address] [facility] [address] [place] [address] 05/07/2025 11:00 AM CDT Office Visit [facility] UROLOGY - [place] [address] [facility] [address] [place] [address] Rahel Mcfadden MD [address] [facility] [address] [place] [address] 06/18/2025 1:15 PM CDT Office Visit [facility] Heart and Vascular At [facility] [address] [place] [address] Theresa London MD [address] [facility] [address] [place] [address] documented as of this encounter Visit Diagnoses Not on filedocumented in this encounter Care Teams Tugger Operator Relationship Specialty Start Date End Date Sergio Menjivar MD [address] [facility] [address] [place] [address] PCP - General Internal Medicine 07/11/12 documented as of this encounter
--- OUTSIDE RECORDS SUMMARY | 2024-10-17 20:09 | XMS_ITS | Clinical Summary ---
Author Organization [facility] Address [address] [place] [address] Phone Care Team Providers Care Business Objects Architect Name Role Phone Sergio Menjivar MD Primary Care Provider [phone] Allergies Active Allergy Reactions Criticality Noted Date Comments Albuterol Other (See Comments) 10/06/2021 Chest pain Cat Dander Itching Low 10/09/2019 Unclassified Drug Nausea and Vomiting Low 1 White fish Medications fluticasone propionate (FLONASE) 50 mcg/spray Pointblank, Suspension nasal inhaler Administer 2 Sprays in each nostril daily. 16 Gram 11 024 Active ipratropium bromide (ATROVENT) 0.02 % Solution Take 0.5 mg by inhalation every 12 hours. Active loratadine (CLARITIN) 10 mg tablet Take 10 mg by mouth daily. Active azelastine (ASTELIN) 137 mcg/actuation nasal sprayIndicatio ns:Perennial allergic rhinitis Administer 2 Sprays in each nostril 2 times daily. 30 mL 5 024 Active amLODIPine (NORVASC) 10 mg tablet TAKE 1 TABLET (10 MG) BY MOUTH DAILY. 100 Tablet 3 024 Active sildenafiL (VIAGRA) 100 mg tabletIndicati ons:Erectile dysfunction, unspecified erectile dysfunction type Take 1 Tablet (100 mg) by mouth 1 time daily as needed for Erectile Dysfunction. 30 Tablet 4 024 Active pantoprazole (PROTONIX) 40 mg Tablet, Delayed Release (E.C.)Indicati ons:Gastroesop hageal reflux disease, unspecified whether esophagitis present Take 1 Tablet (40 mg) by mouth daily. 90 Tablet 3 Active levalbuterol HFA (XOPENEX HFA) 45 mcg/Actuation HFA Aerosol InhalerIndicat ions:Wheezing Take 2 Puffs by inhalation every 6 hours. 15 Gram 4 Active Additional Information Patient taking differently:2 Puff InhalationEVERY 6 HOURS PRN, Reported on 10/16/2024 cevimeline (EVOXAC) 30 mg capsule TAKE ONE CAPSULE (30MG) BY MOUTH 3 TIMES DAILY 270 Capsule 2 Active sodium chloride 7 % Solution for NebulizationIn dications:Recu rrent aspiration pneumonia (CMS/HCC) TAKE 2 ML BY INHALATION 2 TIMES DAILY. 240 mL 1 Active levothyroxine 75 mcg tablet Take 1 Tablet (75 mcg) by mouth daily in the morning. 90 Tablet 1 Active guaiFENesin (Mucinex Fast-Max Chest-Congest) 100 mg/5 mL solution Take 10 mL by mouth every 12 hours. Active Lidocaine 4 % Adhesive Patch, Medicated Apply to right chest. Apply only once for up to 12 hours within a 24 hour period. Patches may be cut into smaller sizes with scissors prior to the removal of the release liner. Clothing may be worn over the area of application. 14 Patch 1 Active dextromethorph an-guaiFENesin (MUCINEX DM) 30-600 mg Tablet Sustained Release 12HR Take 1 Tablet by mouth every 12 hours. 2024 Discontinued predniSONE (DELTASONE) 20 mg tablet Take 2 Tablets (40 mg) by mouth daily. 10 Tablet 024 2024 Discontinued oxygen home deliveryIndica tions:History of respiratory failure May DC home O2 1 Each 025 2024 Discontinued levoFLOXacin (LEVAQUIN) 750 mg tablet Take 1 Tablet (750 mg) by mouth daily for 2 days. 2 Tablet 025 2024 Active Problems Patient Care Coordination No te Formatting of this note migh t be different from the original. Theresa London MD- [facility] ( [place]) SII-Pbooipi-Fodrnejhz Problem Noted Date Diagnosed Date Mediastinal lymphadenopathy 10/16/2024 Acute hypoxic respiratory failure 10/07/2024 Aspiration pneumonia 10/07/2024 Shortness of breath 03/15/2024 Hx of tongue cancer 03/05/2024 Perennial allergic rhinitis 03/05/2024 Abnormal PFT 02/27/2024 Hypoxemia 10/22/2023 Wheezing 10/22/2023 Aspiration pneumonia of left lower lobe due to regurgitated food 07/25/2022 Acquired hypothyroidism 11/28/2021 Protein-calorie malnutrition, moderate 2 Elevated blood protein 08/15/2021 Prediabetes 02/10/2021 Benign [...] reflux disease) 2 Recurrent pneumonia Dysphagia, pharyngeal Resolved Problems Problem Noted Date Diagnosed Date Resolved Date Lethargic 03/14/2024 10/16/2024 Sepsis due to pneumonia 03/14/202405/27 Cough 10/22/2023 06/12/2024 Hyponatremia 05/17/2020 06/30/2020 Sugar blood level increased 01/29/2019 02/10/2021 Hyperkalemia 09/27/2018 06/30/2020 Head and neck cancer 04/18/2011 011 Squamous cell carcinoma 03/11/2011 03/0 09/2017 Severe sepsis with septic shock 12/07/2021 Acute respiratory failure with hypoxia 07/09/2023 Encounters Date Type Department Care Team Description 10/17/2024 Telephone [facility] [address] [place] [address] Guille Carr RN [facility] Cnp 10/16/2024 3:30 PM APPRENTICE FUNERAL DIRECTOR Video Visit [facility] Internal Medicine [facility] [address] [address] Sergio Menjivar MD Mediastinal lymphadenopathy (Primary Dx); Pneumonia of left lower lobe due to infectious organism; Tongue cancer ([facility]/HCC) 10/16/2024 Telephone [facility] Internal Medicine [facility] [address] [facility] [address] Sergio Menjivar MD Courtesy Call 10/15/2024 External Device Data STL ABSTRACTION Provider, Abstract 10/14/2024 External Device Data STL ABSTRACTION Provider, Abstract 10/14/2024 External Device Data STL ABSTRACTION Provider, Abstract 10/13/2024 Telephone [facility] Internal Medicine [facility] [address] [address] Sergio Menjivar MD Hospital Follow Up 10/07/2024 10:33 AM APPRENTICE FUNERAL DIRECTOR - 10/12/2024 1:53 PM APPRENTICE FUNERAL DIRECTOR Hospital Encounter [facility] Medicine [address] [place] [address] Hi Moore DO Pokal, Mytri, MD Longtine, Anne, MD Aspiration pneumonia ([facility]/HCC) Discharge Disposition: Home or Self Care 10/07/2024 Travel 10/07/2024 Telephone [facility] Internal [facility] [address] [address] Sergio Menjivar MD Clinical Consult Before Scheduling 10/06/2024 Telephone [facility] Nutrition [facility] [address] [facility] [address] [place] [address] Dietitian Services (Tube Feed Recs) 10/03/2024 11:45 AM APPRENTICE FUNERAL DIRECTOR Clinical Support [facility] Pulmonology - [facility] [address] [facility] [address] [place] [address] Valentina Alonzo, RAMA Recurrent pneumonia (Primary Dx); Bronchiectasis without complication (CMS/HCC); History of respiratory failure 10/03/2024 Telephone [facility] Pulmonology - [facility] [address] [facility] [address] [place] [address] Valentina Alonzo, RAMA Results 09/25/2024 External Device Data Initial Department [address] [place] [address] Dr LAFLEUR: [place] [address] Jose Paul Md 09/25/2024 Telephone [facility] C[facility] [address] [place] [address] Alysia Maxwell [facility] 09/10/2024 External Device Data STL ABSTRACTION Provider, Abstract 09/10/2024 Refill [facility] EAR, NOSE AND THROAT [facility] CANCER [address] [address] Chris Yost MD 09/10/2024 Results Follow-Up [facility] EAR, NOSE AND THROAT [facility] [address] [facility] [address] [place] [address] Chris Yost MD T4 FREE, TSH 09/04/2024 Orders Only [facility] EAR, NOSE AND THROAT [facility] [address] [facility] [address] [place] [address] Chris Yost MD Secondary hypothyroidism (Primary Dx) 09/03/2024 Refill [facility] EAR, NOSE AND THROAT [address] [place] [address] Chris Yost MD 09/02/2024 External Device Data STL ABSTRACTION Provider, Abstract 09/02/2024 Telephone [facility] Virtual vAmbulatory [address] [place] [address] Simona Tran, RN high risk pt follow up 08/15/2024 [facility] Pulmonology - [facility] [address] [facility] [address] [address] [place] [address] Yvrose Estrada NP Recurrent aspiration pneumonia (CMS/HCC) 08/05/2024 External Device Data Initial Department [address] [place] [address] Dr ROSEN: [place] [address] Jose EmergencyMd 07/31/2024 Telephone [facility] Virtual vAmbulatory [address] [place] [address] Simona Tran, RN follow up on SOB 07/31/2024 External Device Data Initial Department [address] [place] [address] Dr ROSEN: [place] [address] Jose Paul Md 07/30/2024 External Device Data Initial Department [address] [place] [address] Dr ROSEN: [place] [address] Jose Paul Md 07/21/2024 Telephone [facility] Virtual vAmbulatory [address] [place] [address] Simona Tran, RN Low Oxygen 07/21/2024 [facility] Internal Medicine [facility] [place] [address] [address] Sergio Menjivar MD Clinical Consult Before Scheduling 07/17/2024 External Device Data Initial Department [address] [place] [address] Dr ROSEN: [place] [address] Jose Paul Md from Last 3 Months Immunizations Immunization Administration Dates Next Due (ADACEL/BOOSTRIX)(10 YR UP) TDAP VACCINE, 0.5ML, IM 02/01/2011 (MODERNA)(6-11 YRS PRIMARY S ERIES) COVID-19 VACCINE - EMERGENCY USE AUTHORIZATION,MRNA(PF) 50 MCG/0.5 ML IM SUSPP50 MCG/0.5 ML IM SUSP 12/27/2021 (PNEUMOVAX 23)(50 YRS UP) PN EUMOCOCCAL POLYSACCHARIDE (PPV23) 0.5 ML, IM 11/12/2019 (PREVNAR 13)(6 WKS UP) PNEUM OCOCCAL CONJUGATE (PCV13) 0.5 ML, IM 09/27/2018 (SHINGRIX)(50 YRS UP) ZOSTER VACCINE RECOMBINANT, 0.5 ML, IM 08/05/2019,05/28/2019 (SPIKEVAX) (12 YRS UP PRIMAR Y SERIES) COVID-19 VACCINE - MRNA-1273(PF) 100 MCG/0.5 ML IM SUSP 05/28/2024,06/09/2022,06/21/2021,11/02,09/30/2020 (TENIVAC)(7 YRS UP) TETANUS AND DIPHTHERIA TOXOIDS, ADSORBED (5 LF OF TETANUS TOXOID AND 2 LF OF DIPHTHERIA TOXOID), 0.5ML (PF), IM 02/10/2021 INFLUENZA VACCINE HIGH DOSE QUADRIVALENT 65 YR UP PF IM 06/09/2022,06/21/2021,04/27/2020 INFLUENZA VACCINE QUADRIVALE NT 6 MOS UP IM 06/13/2013 Influenza Seasonal Unspecifi ed Formulation IM 05/27/2024,06/27/2023,04/14/2018,06/12,06/04/2015,05/27/2014,06/13/2013 ,06/27/2012,05/27/2010 Influenza Vaccine High Dose 65+ Yrs IM 9,04/23/2018 Influenza Vaccine Split 3+ Yrs IM 06/13/2013 Influenza Vaccine Tri Split 4+ Im 06/13/2013 PNEUMOVAX (PPSV23) pneumococ niurka polysaccharide 23-valent Vaccine 11/12/2019 Zoster Vaccine Live SQ 04/27/2015 Family History Medical History Relation Name Comments Cancer Father Ashlee Black Other Father Ashlee Black live cancer Cancer Mother Anh Black Other Mother Anh Black Bladder Relation Name Status Comments Father Ashlee Black Mother Anh Black Social History Tobacco Use Types Packs/Day Years Used Date Smoking Tobacco: Former Cigarettes 2 30 0 08/27/1974 - 08/27/2004 Smokeless Tobacco: Never Tobacco Cessation:Counseling Given: No Alcohol Use Standard Drinks/Week Comments No 0 [...] on file Legal Sex Male 6:02 AM APPRENTICE FUNERAL DIRECTOR Gender Identity Not on file Sexual Orientation Not on file 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 Not on file Not on file Not on file Last Filed Vital Signs Vital Sign Reading Time Taken Comments Blood Pressure 155/87 10/12/2024 6:45 AM APPRENTICE FUNERAL DIRECTOR Pulse 82 10/12/2024 8:22 AM APPRENTICE FUNERAL DIRECTOR Temperature 36.2 C (97.1 F) 10/12/2024 8:00 AM APPRENTICE FUNERAL DIRECTOR Respiratory Rate 18 10/12/2024 8:22 AM APPRENTICE FUNERAL DIRECTOR Oxygen Saturation 93% 10/12/2024 10:38 AM APPRENTICE FUNERAL DIRECTOR Inhaled Oxygen Concentration - - Weight 70.3 kg (155 lb) 10/16/2024 3:07 PM APPRENTICE FUNERAL DIRECTOR Height 180.3 cm (5' 11 ) 10/16/2024 3:07 PM APPRENTICE FUNERAL DIRECTOR Body Mass Index 21.62 10/16/2024 3:07 PM APPRENTICE FUNERAL DIRECTOR Plan of Treatment Upcoming Encounters Date Type Department Care Team (Late st Contact Info) Description 10/30/2024 12:45 PM APPRENTICE FUNERAL DIRECTOR Office Visit [facility] EAR, NOSE AND THROAT [facility] [address] [place] [address] [address] [place] [address] Chris Yost MD [address] [place] [address] 12/02/2024 11:00 AM CDT Office Visit [facility] Internal Medicine [facility] [place] [address] [address] Sergio Menjivar MD [address] [place] [address] 01/27/2025 9:20 AM CDT Office Visit [facility] Pulmonology - [facility] [address] [facility] [facility] [address] [place] [address] [place] [address] [place] [address] 05/07/2025 11:00 AM CDT Office Visit [facility] UROLOGY - [place] [address] [facility] [address] [place] [address] Rahel Mcfadden MD [address] [facility] [address] [place] [address] 06/18/2025 1:15 PM CDT Office Visit [facility] V[facility] [address] [facility] [address] [facility] [address] [place] [address] Theresa London MD [address] [place] [address] Health Maintenance Due Date Last Done Comments FIT-DNA Q 3 years 1997 FIT/FOBT Q 1 year 1997 Flex Sig/CT Colonography Q 5 years 1997 COVID-19 Vaccine (7 2023-2 5 season) 2024 05/28/2024, 06/09/2022, 12/27/2021, Additional history exists Traditional Medicare (ACO) A nnual Wellness Visit 06/13/2025 06/12/2024, 01/03/2023, 02/10/2021, Additional history exists RSV VACCINE (60+ or ) (1 - 1-dose 75+ series) 2027 COLORECTAL SCREENING 07/27/2028 07/27/2023, 07/26/2023, 01/29/2018, Additional history exists Colorectal Cancer Screening 07/27/2028 DTAP/TDAP/TD VACCINES (3 - T d or Tdap) 02/10/2031 02/10/2021, 02/01/2011 ZOSTER VACCINE Completed 08/05/2019, 09/2018, 04/27/2015 Abdominal Aortic Aneurysm (A AA) Screening Completed 09/02/2019 PNEUMOCOCCAL VACCINE 65+ YEARS Completed 0 11/12/2019, 11/12/2019, 09/27/2018 INFLUENZA VACCINE Completed 05/27/2024, , 06/09/2022, Additional history exists Medical Devices Implanted Type Area Director Biostatistics Device Identifier Shelf Expiration Date Model / Serial / Lot Peg Endovive Kit 20fr Enfit Sfty Pull [id number] - [id number] Implanted:Qt y: 1 on 03/17/2022 by Edi Gutiérrez MD at [facility] Feeding Device N/A: Stomach [employer] [id number] 12/24/2022 [id number] 1 / / [id number] Peg Endovive Kit 20fr Enfit Sfty Pull [id number] - [id number] Implanted:Qt y: 1 on 07/26/2023 by Edi Gutiérrez MD at [facility] Feeding Device N/A: Abdomen [employer] [id number] 07/26/2024 [id number] 1 / / [id number] Procedures Procedure Name Priority Date/Time Associated Diagnosis Comments PULSE OXIMETRY, WITH EXERCISE Pending Discharge 10/12/2024 10:39 AM APPRENTICE FUNERAL DIRECTOR CBC WITHOUT DIFFERENTIAL Routine 10/12/2024 2:27 AM APPRENTICE FUNERAL DIRECTOR BASIC METABOLIC PANEL Routine 10/12/2024 2:27 AM APPRENTICE FUNERAL DIRECTOR BASIC METABOLIC PANEL Routine 10/11/2024 12:53 AM APPRENTICE FUNERAL DIRECTOR CBC WITHOUT DIFFERENTIAL Routine 10/11/2024 12:53 AM APPRENTICE FUNERAL DIRECTOR BASIC METABOLIC PANEL Routine 10/10/2024 2:52 AM APPRENTICE FUNERAL DIRECTOR CBC WITHOUT DIFFERENTIAL Routine 10/10/2024 2:52 AM APPRENTICE FUNERAL DIRECTOR RT ASSESS AND TREAT Stat 10/10/2024 1 :43 AM APPRENTICE FUNERAL DIRECTOR C. DIFFICILE DETECTION Routine 10/09/2024 9:16 AM APPRENTICE FUNERAL DIRECTOR BASIC METABOLIC PANEL Routine 10/09/2024 4:57 AM APPRENTICE FUNERAL DIRECTOR CBC WITHOUT DIFFERENTIAL Routine 10/09/2024 4:57 AM APPRENTICE FUNERAL DIRECTOR SPUTUM CULTURE WITH GRAM STAIN Stat 10/08/2024 1:55 PM APPRENTICE FUNERAL DIRECTOR MRSA PCR RAPID SCREEN Stat 10/08/2024 1:55 PM APPRENTICE FUNERAL DIRECTOR BASIC METABOLIC PANEL Routine 10/08/2024 3:03 AM APPRENTICE FUNERAL DIRECTOR CBC WITHOUT DIFFERENTIAL Routine 10/08/2024 3:03 AM APPRENTICE FUNERAL DIRECTOR TROPONIN 6 HR, 5TH GEN Timed Study 10/07/2024 8:35 PM APPRENTICE FUNERAL DIRECTOR TROPONIN BASELINE, 5TH GEN Stat 10/07/2024 2:37 PM APPRENTICE FUNERAL DIRECTOR CTA CHEST W AND/OR WO CONTRAST Stat 10/07/2024 1:51 PM APPRENTICE FUNERAL DIRECTOR BLOOD CULTURE Stat 10/07/2024 12:10 PM APPRENTICE FUNERAL DIRECTOR BLOOD CULTURE Stat 10/07/2024 12:10 PM APPRENTICE FUNERAL DIRECTOR BLOOD CULTURE Stat 10/07/2024 12:10 PM APPRENTICE FUNERAL DIRECTOR BLOOD CULTURE Stat 10/07/2024 12:10 PM APPRENTICE FUNERAL DIRECTOR XR CHEST PA OR AP 1 VW Stat 10/07/2024 11:57 AM APPRENTICE FUNERAL DIRECTOR INFLUENZA A/B, RSV AND COVID-19 PCR PANEL Stat 10/07/2024 11:35 AM APPRENTICE FUNERAL DIRECTOR INFLUENZA A/B, RSV AND COVID-19 PCR PANEL Stat 10/07/2024 11:35 AM APPRENTICE FUNERAL DIRECTOR POC CREATININE Stat 10/07/2024 11:33 AM APPRENTICE FUNERAL DIRECTOR POC LACTIC ACID Stat 10/07/2024 11:33 AM APPRENTICE FUNERAL DIRECTOR BLOOD GAS VENOUS Stat 10/07/2024 11:31 AM APPRENTICE FUNERAL DIRECTOR TSH Stat 10/07/2024 11:28 AM APPRENTICE FUNERAL DIRECTOR BRAIN NATRIURETIC PEPTIDE, BNP OR PROBNP Stat 10/07/2024 11:28 AM APPRENTICE FUNERAL DIRECTOR COMPREHENSIVE METABOLIC PANEL Stat 10/07/2024 11:28 AM APPRENTICE FUNERAL DIRECTOR PTT Stat 10/07/2024 11:28 AM APPRENTICE FUNERAL DIRECTOR PROTIME-INR Stat 10/07/2024 11:28 AM APPRENTICE FUNERAL DIRECTOR CBC WITH DIFFERENTIAL Stat 10/07/2024 11:28 AM APPRENTICE FUNERAL DIRECTOR CRITICAL CARE Routine 10/07/2024 10:37 AM APPRENTICE FUNERAL DIRECTOR EKG 12-LEAD Stat 10/07/2024 10:21 AM APPRENTICE FUNERAL DIRECTOR TN NONINVASIVE EAR/PULSE OXIMETRY MULTIPLE DETER Routine 10/03/2024 11:51 AM APPRENTICE FUNERAL DIRECTOR Recurrent pneumonia Bronchiectasis without complication (CMS/HCC) TSH Routine 09/09/2024 2:15 PM APPRENTICE FUNERAL DIRECTOR Secondary hypothyroidism T4 FREE Routine 09/09/2024 2:15 PM APPRENTICE FUNERAL DIRECTOR Secondary hypothyroidism COLONOSCOPY REPORT 07/27/2023 11:30 AM APPRENTICE FUNERAL DIRECTOR US AORTA IVC ILIAC DUPLEX COMP Routine 09/02/2019 9:53 AM APPRENTICE FUNERAL DIRECTOR Abdominal aortic aneurysm, ruptured (CMS/HCC) Encounter for abdominal aortic aneurysm (AAA) screening from Last 3 Months or Most Recently Relevant to Health Maintenance Results * PULSE OXIMETRY, WITH EXERCISE (10/12/2024 10:39 AM APPRENTICE FUNERAL DIRECTOR) Narrative [facility] - 10/12/2024 10:39 AM APPRENTICE FUNERAL DIRECTOR Cherelle Sesay, COLORS CUSTODIAN 10/12/2024 10:41 AM OXYGEN WALK STUDY Oxygen Walk Study performed per Medicare guidelines for severe lung disease with a SpO2 of 88% or less while on room air at rest or with exertion. Recommendation: Patient requires 2 Liters per minute of oxygen at rest and 4 Lpm with exertion to maintain SpO2 of greater or equal to 89%. Pre Test at Rest-RA Pre test at rest-O2 With Activity-O2 With Activity-O2 Post Test at Rest-O2 Time: Oxygen Level: RA 2L 2L 4L 2L Heart Rate: 86 85 96 97 91 SpO2: 87 91 87 91 93 Comments about Evaluation: The patient ambulated 300 ft. [place] call [phone] for any questions about this walk study. us Erin Egan MD PFT ORDERABLES Final Result [facility] [address] [facility] [place] [id number] * (ABNORMAL) CBC WITHOUT DIFFERENTIAL (10/12/2024 2:27 AM APPRENTICE FUNERAL DIRECTOR) Only the most recent of5 resultswithin the time period is included. WBC 9.3 4.0 - 9.8 K/uL 10/12/2024 3:41 AM APPRENTICE FUNERAL DIRECTOR [facility] RBC 3.49(L) 4.50 - 5.40 M/uL 10/12/2024 3:41 AM APPRENTICE FUNERAL DIRECTOR [facility] HEMOGLOBIN 11.0(L) 13.6 - 16.5 g/dL 10/12/2024 3:41 AM [facility] [employer] LABORATORY SERVICES - [facility] HEMATOCRIT 34.3(L) 40.0 - 48.0 % 10/12/2024 3:41 AM [facility] Lateral SV [facility] - . [facility] MCV 98.3 82.0 - 99.0 fL 10/12/2024 3:41 AM [facility] Lateral SV [facility] - [facility] MCH 31.5 27.2 - 32.6 pg 10/12/2024 3:41 AM [facility] Lateral SV [facility] - [facility] MCHC 32.1 31.5 - 35.5 g/dL 10/12/2024 3:41 AM [facility] Lateral SV [facility] - [facility] PLATELETS 165 140 - 350 K/uL 10/12/2024 3:41 AM [facility] Lateral SV [facility] - . [facility] MPV 11.0 9.3 - 12.4 fL 10/12/2024 3:41 AM [facility] [employer] - . [facility] RDW 12.9 11.5 - 14.5 % 10/12/2024 3:41 AM [facility] Lateral SV [facility] - [facility] RDW-STDEV 46.0 37.1 - 48.7 fL 10/12/2024 3:41 AM [facility] [employer] - [facility] Blood Venipuncture / Unknown 10/12/2024 2:27 AM APPRENTICE FUNERAL DIRECTOR 10/12/2024 3:25 AM APPRENTICE FUNERAL DIRECTOR us Erin Egan MD HEMATOLOGY ORDERABLES Final Res ult [facility] [employer] [facility] CLIA# [id number] [address] [facility] [id number] * (ABNORMAL) BASIC METABOLIC PANEL (10/12/2024 2:27 AM APPRENTICE FUNERAL DIRECTOR) Only the most recent of5 resultswithin the time period is included. SODIUM 140 136 - 145 mmol/L 10/12/2024 4:08 AM [facility] Lateral SV [facility] POTASSIUM 4.0 3.5 - 5.0 mmol/L 10/12/2024 4:08 AM [facility] [employer] [facility] CHLORIDE 105 98 - 107 mmol/L 10/12/2024 4:08 AM [facility] CO2 28 22 - 29 mmol/L 10/12/2024 4:08 AM [facility] CALCIUM 8.3(L) 8.6 - 10.2 mg/dL 10/12/2024 4:08 AM [facility] BUN 17 8 - 23 mg/dL 10/12/2024 4:08 AM [facility] CREATININE 0.51(L) 0.67 - 1.17 mg/dL 10/12/2024 4:08 AM [facility] [employer] [facility] Comment:The GFR result is no t clinically significant on patients <18 or >70 years of age. GLUCOSE 125(H) 74 - 99 mg/dL 10/12/2024 4:08 AM [facility] GFR >60 mL/min/1.7 3 sq meter 10/12/2024 4:08 AM [facility] [employer] [facility] Comment:eGFR calculated with 2020 CKD-EPI equation. Vegetarian diet, extremely high or low muscle mass, and may affect results. Cystatin C with Glomerular Filtration Rate is a suitable alternative for these patients. ANION GAP 7(L) 8 - 16 mmol/L 10/12/2024 4:08 AM [facility] [employer] [facility] Blood Venipuncture / Unknown 10/12/2024 2:27 AM APPRENTICE FUNERAL DIRECTOR 10/12/2024 3:25 AM [facility] us Erin Egan MD CHEMISTRY ORDERABLES Final Resu lt [facility] [employer] [facility] CLIA# [id number] [address] [place] [address] * C. DIFFICILE DETECTION (10/09/2024 9:16 AM APPRENTICE FUNERAL DIRECTOR) TOXIGENIC C DIFFICILE NOT DETECTED Not Detected 10/09/2024 10:34 AM [facility] [employer] [facility] Stool STOOL SPECIMEN / Unknown Collection / Unknown 10/09/2024 9:16 AM APPRENTICE FUNERAL DIRECTOR 10/09/2024 9:29 AM APPRENTICE FUNERAL DIRECTOR [facility] - 10/09/2024 10:34 AM APPRENTICE FUNERAL DIRECTOR This assay is used to detect Toxigenic C. difficile target(B gene) DNA sequences in unformed stool specimens. If toxigenic C. difficile is not detected, but clinical suspicion is high please consult ID for consultation and potential repeat testing. This test should not be used as a test of cure. Jadiel Ackerman MD MICROBIOLOGY - GENERAL ORD ERABLES Final Result Performing Organization Address [facility]/ZIP Co de Phone Number [facility]# [id number] [address] [place] [address] * MRSA PCR RAPID SCREEN (10/08/2024 1:55 PM APPRENTICE FUNERAL DIRECTOR) MRSA PCR RESULT MRSA not detected MRSA not detected 10/08/2024 4:03 PM APPRENTICE FUNERAL DIRECTOR [facility] Surveillance ANTERIOR NARES SWAB / Unknown Collection / Unknown 10/08/2024 1:55 PM APPRENTICE FUNERAL DIRECTOR 10/08/2024 2:09 PM APPRENTICE FUNERAL DIRECTOR [facility] - 10/08/2024 4:03 PM APPRENTICE FUNERAL DIRECTOR This assay is used to detect Methicillin-Resistant S. aureus (MRSA) colonization of the nares. PLEASE NOTE: This test has not been approved to monitor effectiveness of MRSA decolonization. Residual DNA may temporarily be present after successful decolonization. This test was performed using an FDA approved screening methodology. Erin Egan MD MICROBIOLOGY - GENERAL ORDERABL ES Final Result Performing Organization Address [facility]/ZIP Co de Phone Number [facility] [employer] [facility]# [id number] [address] [place] [address] * (ABNORMAL) SPUTUM CULTURE WITH GRAM STAIN (10/08/2024 1:55 PM APPRENTICE FUNERAL DIRECTOR) CULTURE SERRATIA MARCESCENS(A) MING MCG/ML 10/11/2024 11:39 AM [facility] CULTURE PSEUDOMONAS AERUGINOSA(A) MING MCG/ML 10/11/2024 11:39 AM [facility] CULTURE Absent Normal Scarlet MING MCG/ML 10/11/2024 11:39 AM [facility] GRAM STAIN Gram negative kailash pattern 10/11/2024 11:39 AM [facility] GRAM STAIN 3+ (Moderate) Polymorphonuclear WBC 10/11/2024 11:39 AM [facility] Sputum COUGHED SPUTUM SPECIMEN / Unknown Collection / Unknown 10/08/2024 1:55 PM APPRENTICE FUNERAL DIRECTOR 10/08/2024 2:09 PM APPRENTICE FUNERAL DIRECTOR Narrative Organism Antibiotic Method Susceptibility Serratia marcescens CEFTRIAXONE MING MCG/ML <=1 mcg/mL: Susceptible Serratia marcescens CEFTAZIDIME MING MCG/ML <=1 mcg/mL: Susceptible Serratia marcescens CEFOXITIN MING MCG/ML 16 mcg/mL: Resistant Serratia marcescens GENTAMICIN MING MCG/ML <=1 mcg/mL: Susceptible Serratia marcescens CIPROFLOXACIN MING MCG/ML <=0.25 mcg/mL: Susceptible Serratia marcescens TRIMETHOPRIM/ SULFAMETHOXAZOLE MING MCG/ML <=20 mcg/mL: Susceptible Serratia marcescens PIPERACILLIN/ TAZOBACTAM [facility] Susceptible Comment:Aminoglycosides shou ld not be used as monotherapy for infections outside the urinary tract. Consultation with an infectious diseases specialist is recommended. Pseudomonas aeruginosa CEFTAZIDIME MING MCG/ML 2 mcg/mL: Susceptible Pseudomonas aeruginosa GENTAMICIN MING MCG/ML Resistant Pseudomonas aeruginosa TOBRAMYCIN MING MCG/ML <=1 mcg/mL: Susceptible Pseudomonas aeruginosa CIPROFLOXACIN MING MCG/ML <=0.25 mcg/mL: Susceptible Pseudomonas aeruginosa PIPERACILLIN/ TAZOBACTAM MING MC G/ML <=4 mcg/mL: Susceptible Comment:Aminoglycosides shou ld not be used as monotherapy for infections outside the urinary tract. Consultation with an infectious diseases specialist is recommended. us Erin Egan MD MICROBIOLOGY - GENERAL ORDERABL ES Final Result [facility] CLIA# [id number] [address] [place] [address] * TROPONIN 6 HR, 5TH GEN (10/07/2024 8:35 PM APPRENTICE FUNERAL DIRECTOR) TROPONIN T, 6 HR 5TH GEN 10 <=15 ng/L 10/07/2024 9:29 PM APPRENTICE FUNERAL DIRECTOR [facility] DELTA 6HR TROPONIN T 1 See Interp. 10/07/2024 9:29 PM APPRENTICE FUNERAL DIRECTOR [facility] Blood Venipuncture / Unknown 10/07/2024 8:35 PM APPRENTICE FUNERAL DIRECTOR 10/07/2024 8:50 PM APPRENTICE FUNERAL DIRECTOR [facility] LABORATORY [facility] - 10/07/2024 9:29 PM APPRENTICE FUNERAL DIRECTOR Troponin Detectable but normal range. Delta indeterminate. Delay in collection of timed specimen beyond recommended collection interval. Results must be interpreted in clinical context. Hi Moore DO CHEMISTRY ORDERABLES Final Result Performing Organization Address City/[facility]/ZIP Co de Phone Number [facility] [employer] [facility]# [id number] [address] [place] [address] * TROPONIN BASELINE, 5TH GEN (10/07/2024 2:37 PM APPRENTICE FUNERAL DIRECTOR) Pathologist [facility] TROPONIN T, BASELINE 5TH GEN 9 <=15 ng/L 10/07/2024 3:39 PM APPRENTICE FUNERAL DIRECTOR [facility] [employer] [facility] Blood Collection / Unknown 10/07/2024 2:37 PM APPRENTICE FUNERAL DIRECTOR 10/07/2024 2:58 PM APPRENTICE FUNERAL DIRECTOR [facility] [employer] [facility] - 10/07/2024 3:39 PM APPRENTICE FUNERAL DIRECTOR Troponin Detectable but normal range. Hi Moore DO CHEMISTRY ORDERABLES Final Result [facility] [employer] [facility]# [id number] [address] [place] [address] * CTA CHEST W AND/OR WO CONTRAST (10/07/2024 1:51 PM APPRENTICE FUNERAL DIRECTOR) Anatomical Region Laterality Modality Chest Computed Tomogra phy 10/07/2024 1:38 PM APPRENTICE FUNERAL DIRECTOR Impressions 10/07/2024 2:49 PM APPRENTICE FUNERAL DIRECTOR IMPRESSION: 1. No evidence of pulmonary embolus. 2. Multifocal pneumonia, greatest in the left lower lobe and lingula. Follow-up to resolution is recommended. 3. Trace left pleural effusion. 4. Mildly enlarged mediastinal and left hilar lymph nodes may be reactive. Continued follow-up is suggested. DICTATION LOCATION: Location [address] [place], [place] [address] 10/07/2024 2:49 PM APPRENTICE FUNERAL DIRECTOR EXAMINATION: Computed tomography angiography (CTA) of the chest without and with intravenous contrast with reformatted images DATE: 10/07/2024 1:51 PM HISTORY: Pulmonary embolism (PE) suspected, high prob. Dyspnea, unspecified type; Hypoxia; History of aspiration pneumonia; History of tongue cancer. TECHNIQUE: CTA of the chest was performed prior to and following the uneventful intravenous administration of IOPAMIDOL 61 % INTRAVENOUS SOLUTION (MULTI-DOSE BULK PACK) Given:85 mL contrast according to standard protocol. 3-D reconstructions were created on a separate workstation by a textile technologist and submitted for review. The examination was performed with the adjustment of mA according to the patient size and/or the use of Iterative Reconstruction Technique. COMPARISON: 10/19/2022 FINDINGS: Vascular: There is adequate opacification of the pulmonary arteries. No evidence of pulmonary embolus. The main pulmonary artery is normal in caliber. Mildly atherosclerotic aorta is normal in caliber. Chest: LUNGS: Consolidation and groundglass opacities scattered throughout both lungs are greatest in the lingula and left lower lobe, compatible with multifocal pneumonia. Patchy opacification of left lower lobe bronchi with mucous/debris. No pneumothorax. Trace left pleural effusion. Emphysema. HEART/VESSELS: Normal heart size without a pericardial effusion. Coronary artery calcifications are present. MEDIASTINUM/CE: Enlarged mediastinal and left hilar lymph nodes measuring up to 1.6 cm in short axis in the subcarinal region. CHEST WALL/LOWER NECK: Within normal limits. UPPER ABDOMEN: Percutaneous gastrostomy catheter terminates in the gastric lumen. OSSEOUS: Spinal degenerative changes. Procedure Note Jadiel Green MD - 10/07/2024 EXAMINATION: Computed tomography angiography (CTA) of the chest without and with intravenous contrast with reformatted images DATE: 10/07/2024 1:51 PM HISTORY: Pulmonary embolism (PE) suspected, high prob. Dyspnea, unspecified type; Hypoxia; History of aspiration pneumonia; History of tongue cancer. TECHNIQUE: CTA of the chest was performed prior to and following the uneventful intravenous administration of IOPAMIDOL 61 % INTRAVENOUS SOLUTION (MULTI-DOSE BULK PACK) Given:85 mL contrast according to standard protocol. 3-D reconstructions were created on a separate workstation by a textile technologist and submitted for review. The examination was performed with the adjustment of mA according to the patient size and/or the use of Iterative Reconstruction Technique. COMPARISON: 10/19/2022 FINDINGS: Vascular: There is adequate opacification of the pulmonary arteries. No evidence of pulmonary embolus. The main pulmonary artery is normal in caliber. Mildly atherosclerotic aorta is normal in caliber. Chest: LUNGS: Consolidation and groundglass opacities scattered throughout both lungs are greatest in the lingula and left lower lobe, compatible with multifocal pneumonia. Patchy opacification of left lower lobe bronchi with mucous/debris. No pneumothorax. Trace left pleural effusion. Emphysema. HEART/VESSELS: Normal heart size without a pericardial effusion. Coronary artery calcifications are present. MEDIASTINUM/CE: Enlarged mediastinal and left hilar lymph nodes measuring up to 1.6 cm in short axis in the subcarinal region. CHEST WALL/LOWER NECK: Within normal limits. UPPER ABDOMEN: Percutaneous gastrostomy catheter terminates in the gastric lumen. OSSEOUS: Spinal degenerative changes. IMPRESSION: 1. No evidence of pulmonary embolus. 2. Multifocal pneumonia, greatest in the left lower lobe and lingula. Follow-up to resolution is recommended. 3. Trace left pleural effusion. 4. Mildly enlarged mediastinal and left hilar lymph nodes may be reactive. Continued follow-up is suggested. DICTATION LOCATION: Location 9 - [facility] us Hi Moore DO CT ORDERABLES Final Resul t * BLOOD CULTURE (10/07/2024 12:10 PM APPRENTICE FUNERAL DIRECTOR) Only the most recent of2 resultswithin the time period is included. Pathologist [facility] BLOOD CULTURE No growth 10/12/2024 4:35 PM APPRENTICE FUNERAL DIRECTOR [facility] SERVICES [facility] Blood (Peripheral) Venipuncture / Unknown 10/07/2024 12:10 PM APPRENTICE FUNERAL DIRECTOR 10/07/2024 12:13 PM APPRENTICE FUNERAL DIRECTOR Narrative [facility] - 10/12/2024 4:35 PM APPRENTICE FUNERAL DIRECTOR Specimen processed with suboptimal blood volume collected. Hi Moore DO MICROBIOLOGY - GENERAL ORDE EMILY Final Result [facility] CLIA# [id number] [address] [place] [address] * XR CHEST PA OR AP 1 VW (10/07/2024 11:57 AM APPRENTICE FUNERAL DIRECTOR) Anatomical Region Laterality Modality Chest Computed Radiogr aphy 10/07/2024 11:5 7 AM APPRENTICE FUNERAL DIRECTOR Impressions 10/07/2024 12:02 PM APPRENTICE FUNERAL DIRECTOR IMPRESSION: Progressive consolidation in the left lower lung, and development of a trace left pleural effusion. Increased right base opacities. Diffuse interstitial prominence. Concern for recurrent pneumonia versus malignancy in the left lung. Associated or superimposed infection may also be present. Further evaluation with contrast-enhanced CT is recommended. DICTATION LOCATION: Location 1 - [facility] Narrative 10/07/2024 12:02 PM APPRENTICE FUNERAL DIRECTOR XR CHEST PA OR AP 1 VW DATE: 10/07/2024 11:57 AM HISTORY: Difficulty Breathing; Dyspnea, unspecified type; Hypoxia; History of aspiration pneumonia; History of tongue cancer COMPARISON: Prior chest x-rays, most recent 06/03/2024 TECHNIQUE: 1 view of the chest FINDINGS: Increased density and consolidation of opacities in the mid to lower left lung. Mild hazy opacities in the right lung base. Diffuse interstitial prominence. No pneumothorax. Trace left pleural effusion. No right effusion. Normal heart size. Aortic atherosclerosis. Calcific granulomas. No acute osseous findings. Procedure Note John Cardona MD - 10/07/2024 XR CHEST PA OR AP 1 VW DATE: 10/07/2024 11:57 AM HISTORY: Difficulty Breathing; Dyspnea, unspecified type; Hypoxia; History of aspiration pneumonia; History of tongue cancer COMPARISON: Prior chest x-rays, most recent 06/03/2024 TECHNIQUE: 1 view of the chest FINDINGS: Increased density and consolidation of opacities in the mid to lower left lung. Mild hazy opacities in the right lung base. Diffuse interstitial prominence. No pneumothorax. Trace left pleural effusion. No right effusion. Normal heart size. Aortic atherosclerosis. Calcific granulomas. No acute osseous findings. IMPRESSION: Progressive consolidation in the left lower lung, and development of a trace left pleural effusion. Increased right base opacities. Diffuse interstitial prominence. Concern for recurrent pneumonia versus malignancy in the left lung. Associated or superimposed infection may also be present. Further evaluation with contrast-enhanced CT is recommended. DICTATION LOCATION: Location 1 - [facility] Hi Moore DO DIAGNOSTIC IMAGING ORDERABL ES Final Result * INFLUENZA A/B, RSV AND COVID-19 PCR PANEL (10/07/2024 11:35 AM APPRENTICE FUNERAL DIRECTOR) COVID-19 PCR NOT DETECTED Not Detected 10/07/19 12:46 PM APPRENTICE FUNERAL DIRECTOR [facility] [employer] [facility] Influenza A by PCR NOT DETECTED Not Detected 10/07/2024 12:46 PM APPRENTICE FUNERAL DIRECTOR [facility] Influenza B by PCR NOT DETECTED Not Detected 10/07/2024 12:46 PM APPRENTICE FUNERAL DIRECTOR [facility] [employer] [facility] RSV by PCR NOT DETECTED Not Detected 10/07/2024 12:46 PM APPRENTICE FUNERAL DIRECTOR [facility] Upper Respiratory ENTIRE NASOPHARYNX / Unknown Collection / Unknown 10/07/2024 11:35 AM APPRENTICE FUNERAL DIRECTOR 10/07/2024 11:39 AM APPRENTICE FUNERAL DIRECTOR [facility] - 10/07/2024 12:46 PM APPRENTICE FUNERAL DIRECTOR This test has been authorized by the FDA under an Emergency Use Authorization for use by authorized laboratories. This test has been validated in accordance with the FDA's guidance regarding Coronavirus Disease-2019 testing. Optimum specimen types and timing for peak viral levels during infection have not been determined. A negative RT-PCR result does not rule out infection with the 2019-Novel Coronavirus. Hi Moore DO MICROBIOLOGY - GENERAL ORDE RABLES Final Result [facility] CLIA# [id number] [address] [place] [address] * POC LACTIC ACID (10/07/2024 11:33 AM APPRENTICE FUNERAL DIRECTOR) LACTIC ACID POC 1.6 <=2.0 mmol/L 10/07/2024 11:33 AM [facility] SPECIMEN SOURCE, GASES POC Blank 10/07/2024 11:33 AM APPRENTICE FUNERAL DIRECTOR [facility] [employer] [facility] Blood 10/07/2024 11:3 3 AM APPRENTICE FUNERAL DIRECTOR 10/07/2024 11:35 AM APPRENTICE FUNERAL DIRECTOR Hi Moore DO POINT OF CARE TESTING Final Result Performing Organization Address City/[facility]/ZIP Co de Phone Number [facility] [id number] [address] [place] [address] * POC CREATININE (10/07/2024 11:33 AM APPRENTICE FUNERAL DIRECTOR) CREATININE POC 0.90 0.70 - 1.20 mg/dL 10/07/2024 11:33 AM [facility] [employer] [facility] Comment:The GFR result is no t clinically significant on patients <18 or >70 years of age. GFR POC >60 mL/min/1.7 3 sq meter 10/07/2024 11:33 AM [facility] [employer] [facility] Comment:eGFR calculated with 2020 CKD-EPI equation. Vegetarian diet, extremely high or low muscle mass, and may affect results. Cystatin C with Glomerular Filtration Rate is a suitable alternative for these patients. Blood, whole 10/07/2024 11:3 3 AM APPRENTICE FUNERAL DIRECTOR 10/07/2024 11:37 AM APPRENTICE FUNERAL DIRECTOR Hi Moore DO POINT OF CARE TESTING Final Result Performing Organization Address City/[facility]/ZIP Co de Phone Number [facility] CLIA# [id number] [address] [place] [address] * (ABNORMAL) BLOOD GAS VENOUS (10/07/2024 11:31 AM APPRENTICE FUNERAL DIRECTOR) PH BLOOD POC 7.39 7.32 - 7.43 10/07/2024 11:31 AM [facility] [employer] [facility] PCO2 POC 49 38 - 50 mm Hg 10/07/2024 11:31 AM [facility] [employer] [facility] PO2 POC 52(H) 25 - 40 mm Hg 10/07/2024 11:31 AM [facility] [employer] [facility] HCO3 (CALC) POC 30(H) 22 - 29 mmol/L 10/07/2024 11:31 AM [facility] [facility] HEMOGLOBIN POC 14.4 13.6 - 16.5 g/dL 10/07/2024 11:31 AM [facility] [employer] [facility] O2 SATURATION POC 85(H) 40 - 70 % 10/07/2024 11:31 AM [facility] HEMATOCRIT POC 43 40 - 48 % 10/07/2024 11:31 AM [facility] [employer] [facility] Comment:Estimated Value PH TEMP CORRECT 7.39 7.32 - 7.43 10/07/2024 11:31 AM [facility] PCO2 TEMP CORRECT 49 38 - 50 mm Hg 10/07/2024 11:31 AM [facility] [employer] [facility] PO2 TEMP CORRECT 52(H) 25 - 40 mm Hg 10/07/2024 11:31 AM [facility] [employer] [facility] SPECIMEN SOURCE, GASES POC Venous 10/07/2024 11:31 AM [facility] COMMENT, GASES POC Responsible Clinical Caregiver notified 10/07/2024 11:31 AM [facility] PATIENT'S TEMPERATURE POC 37.0 degrees 10/07/2024 11:31 AM [facility] Blood, venous 10/07/2024 11: 31 AM APPRENTICE FUNERAL DIRECTOR 10/07/2024 11:32 AM APPRENTICE FUNERAL DIRECTOR Hi Moore DO ABG ORDERABLES Final Resul t [facility] CLIA# [id number] [address] [place] [id number] * (ABNORMAL) CBC WITH DIFFERENTIAL (10/07/2024 11:28 AM APPRENTICE FUNERAL DIRECTOR) [facility] WBC 16.4(H) 4.0 - 9.8 K/uL 10/07/2024 11:43 AM APPRENTICE FUNERAL DIRECTOR [employer] [facility] RBC 4.34(L) 4.50 - 5.40 M/uL 10/07/2024 11:43 AM APPRENTICE FUNERAL DIRECTOR [employer] [facility] HEMOGLOBIN 13.6 13.6 - 16.5 g/dL 10/07/2024 11:43 AM APPRENTICE FUNERAL DIRECTOR [employer] [facility] HEMATOCRIT 41.5 40.0 - 48.0 % 10/07/2024 11:43 AM [employer] [facility] MCV 95.6 82.0 - 99.0 fL 10/07/2024 11:43 AM [employer] MCH 31.3 27.2 - 32.6 pg 10/07/2024 11:43 AM APPRENTICE FUNERAL DIRECTOR [employer] [facility] MCHC 32.8 31.5 - 35.5 g/dL 10/07/2024 11:43 AM [facility] RDW 12.6 11.5 - 14.5 % 10/07/2024 11:43 AM [employer] RDW-STDEV 44.1 37.1 - 48.7 fL 10/07/2024 11:43 AM APPRENTICE FUNERAL DIRECTOR [employer] [facility] PLATELETS 182 140 - 350 K/uL 10/07/2024 11:43 AM APPRENTICE FUNERAL DIRECTOR [employer] [facility] MPV 11.8 9.3 - 12.4 fL 10/07/2024 11:43 AM [facility] NEUTROPHILS 88 % 10/07/2024 11:43 AM APPRENTICE FUNERAL DIRECTOR [employer] [facility] LYMPHOCYTES 4 % 10/07/2024 11:43 AM APPRENTICE FUNERAL DIRECTOR [employer] [facility] MONOCYTES 7 % 10/07/2024 11:43 AM APPRENTICE FUNERAL DIRECTOR [employer] [facility] EOSINOPHILS 0 % 10/07/2024 11:43 AM [facility] [employer] [facility] BASOPHILS 0 % 10/07/2024 11:43 AM [facility] [employer] [facility] IMMATURE GRANULOCYTES 0 % 10/07/2024 11:43 AM [facility] [employer] [facility] NEUTROPHIL ABSOLUTE 14.42(H) 1.90 - 7.00 K/uL 10/07/2024 11:43 AM [facility] [employer] [facility] LYMPHOCYTE ABSOLUTE 0.71 0.70 - 4.50 K/uL 10/07/2024 11:43 AM [facility] [employer] [facility] MONOCYTE ABSOLUTE 1.19 0.10 - 1.30 K/uL 10/07/2024 11:43 AM [facility] [employer] [facility] EOSINOPHIL ABSOLUTE 0.00 0.00 - 0.70 K/uL 10/07/2024 11:43 AM [facility] [employer] [facility] BASOPHILS ABSOLUTE 0.03 0.00 - 0.20 K/uL 10/07/2024 11:43 AM [facility] IMMATURE GRANULOCYTES ABSOLUTE 0.05(H) 0.00 - 0.03 K/uL 10/07/2024 11:43 AM [facility]ateral [facility] Blood Venipuncture / Unknown 10/07/2024 11:28 AM APPRENTICE FUNERAL DIRECTOR 10/07/2024 11:34 AM APPRENTICE FUNERAL DIRECTOR Hi Moore DO HEMATOLOGY ORDERABLES Final Result [facility] [employer] [facility]# [id number] [address] [facility] [address] [place] [address] [address] * PTT (10/07/2024 11:28 AM APPRENTICE FUNERAL DIRECTOR) [facility] PTT 28.2 24.4 - 36.4 seconds 10/07/2024 11:51 AM [facility] [employer] [facility] Comment: PTT Therapeutic Range: Heparin Level PTT (seconds) <0.10 units/mL <53 0.10 - 0.30 units/mL 53 - 67 0.30 - 0.70 units/mL* 67 - 95* 0.70 - 1.00 units/mL 95 - 116 *corresponds to therapeutic range for unfractionated heparin Blood Venipuncture / Unknown 10/07/2024 11:28 AM APPRENTICE FUNERAL DIRECTOR 10/07/2024 11:34 AM APPRENTICE FUNERAL DIRECTOR Hi Moncho Moore DO HEMATOLOGY ORDERABLES Final Result Performing Organization Address City/[facility]/ZIP Co de Phone Number [facility] [employer] [facility] CLIA# [id number] [address] [place] [address] * PROTIME-INR (10/07/2024 11:28 AM APPRENTICE FUNERAL DIRECTOR) PROTIME 13.7 12.7 - 15.1 Seconds 10/07/2024 11:51 AM APPRENTICE FUNERAL DIRECTOR [facility] INR 1.1 0.9 - 1.1 10/07/2024 11:51 AM APPRENTICE FUNERAL DIRECTOR [facility] Blood Venipuncture / Unknown 10/07/2024 11:28 AM APPRENTICE FUNERAL DIRECTOR 10/07/2024 11:34 AM APPRENTICE FUNERAL DIRECTOR Narrative [facility] - 10/07/2024 11:51 AM APPRENTICE FUNERAL DIRECTOR INR Therapeutic Range: Adult: 2.0 - 3.0 for pulmonary embolism or prophylaxis against venous thrombosis or systemic embolization. 2.0 - 3.0 for patients with tissue heart valves. 2.5 - 3.5 for patients with mechanical heart valves or post VA. Pediatric (12 years and under): 1.5 - 3.0 Although the target range in children is not well established, INR values of 1.5 - 3.0 are recommended for most patients. Higher values have been used in children with prosthetic cardiac valves and hereditary clotting disorders. (<3 days) therapeutic ranges have not been established. Hi Moore DO HEMATOLOGY ORDERABLES Final Result [facility] [employer] [facility] CLIA# [id number] [address] [place] [address] * TSH (10/07/2024 11:28 AM APPRENTICE FUNERAL DIRECTOR) Only the most recent of2 resultswithin the time period is included. TSH 0.92 0.27 - 4.20 uIU/mL 10/07/2024 12:22 PM APPRENTICE FUNERAL DIRECTOR [facility] Blood Venipuncture / Unknown 10/07/2024 11:28 AM APPRENTICE FUNERAL DIRECTOR 10/07/2024 11:34 AM APPRENTICE FUNERAL DIRECTOR Hi Moore DO CHEMISTRY ORDERABLES Final Result Performing Organization Address [facility]/ZIP Co de Phone Number [facility] CLIA# [id number] [address] [place] [address] * (ABNORMAL) BRAIN NATRIURETIC PEPTIDE, BNP OR PROBNP (10/07/2024 11:28 AM APPRENTICE FUNERAL DIRECTOR) PROBNP, N TERMINAL 2,064(H) <124 pg/mL 10/07/2024 12:22 PM [facility] Comment: INTERPRETIVE COMMENT based on diagnosis: Diagnostic NT pro-BNP cutoffs for Heart Failure in the absence of renal failure is suggested for the following ranges <75 years: <125 pg/mL >=75 years: <450 pg/mL Exclusionary rule out cut-point for Acute Decompensated Heart Failure(ADHF) All ages: <300 pg/mL Diagnostic NT pro-BNP cutoffs for Acute Decompensated Heart Failure(ADHF) in the absence of renal failure is suggested for the following ages <50 years: > 450 pg/mL 50-75 years: > 900 pg/mL >75 years: >1800 pg/mL Blood Venipuncture / Unknown 10/07/2024 11:28 AM APPRENTICE FUNERAL DIRECTOR 10/07/2024 11:34 AM APPRENTICE FUNERAL DIRECTOR Hi Moore DO CHEMISTRY ORDERABLES Final Result Performing Organization Address City/[facility]/ZIP Co de Phone Number [facility] CLIA# [id number] [address] [place] [address] * (ABNORMAL) COMPREHENSIVE METABOLIC PANEL (10/07/2024 11:28 AM [facility]) SODIUM 139 136 - 145 mmol/L 10/07/2024 12:24 PM [facility] [employer] [facility] POTASSIUM 5.2(H) 3.5 - 5.0 mmol/L 10/07/2024 12:24 PM [facility] Comment:Moderate hemolysis p resent. Can cause significant falsely elevated result. Redraw if indicated. CHLORIDE 102 98 - 107 mmol/L 10/07/2024 12:24 PM [facility] [employer] [facility] CO2 26 22 - 29 mmol/L 10/07/2024 12:24 PM [facility] [employer] [facility] CALCIUM 9.2 8.6 - 10.2 mg/dL 10/07/2024 12:24 PM [facility] [employer] [facility] BUN 31(H) 8 - 23 mg/dL 10/07/2024 12:24 PM [facility] CREATININE 0.83 0.67 - 1.17 mg/dL 10/07/2024 12:24 PM [facility] Comment:The GFR result is no t clinically significant on patients <18 or >70 years of age. GLUCOSE 98 74 - 99 mg/dL 10/07/2024 12:24 PM [facility] TOTAL PROTEIN 6.9 6.7 - 8.6 g/dL 10/07/2024 12:24 PM [facility] [employer] [facility] ALBUMIN 3.8 3.5 - 5.2 g/dL 10/07/2024 12:24 PM [facility] BILIRUBIN TOTAL 0.6 0.2 - 1.1 mg/dL 10/07/2024 12:24 PM [facility] ALKALINE PHOSPHATASE 39(L) 40 - 129 U/L 10/07/2024 12:24 PM [facility] [employer] [facility] AST 10/07/2024 12:24 PM [facility] [employer] [facility] Comment:Test cannot be perfo rmed. Sample hemolysis interference above limits. Redraw if indicated. ALT 11 <42 U/L 10/07/2024 12:24 PM [facility] [employer] [facility] Comment:Hemolysis present. R esult may be falsely elevated. GFR >60 mL/min/1.7 3 sq meter 10/07/2024 12:24 PM [facility] Comment:eGFR calculated with 2020 CKD-EPI equation. Vegetarian diet, extremely high or low muscle mass, and may affect results. Cystatin C with Glomerular Filtration Rate is a suitable alternative for these patients. ANION GAP 11 8 - 16 mmol/L 10/07/2024 12:24 PM [facility] Blood Venipuncture / Unknown 10/07/2024 11:28 AM APPRENTICE FUNERAL DIRECTOR 10/07/2024 11:34 AM APPRENTICE FUNERAL DIRECTOR Narrative [facility] - 10/07/2024 12:24 PM APPRENTICE FUNERAL DIRECTOR Samples containing indocyanine green cause interferences on Total and/or Direct Bilirubin and must not be measured. Hi Moore DO CHEMISTRY ORDERABLES Final Result Performing Organization Address City/State/[facility] Co de Phone Number [facility]# [id number] [address] [place] [address] * Critical Care (10/07/2024 10:37 AM APPRENTICE FUNERAL DIRECTOR) Narrative Hi Moore DO - 10/07/2024 10:37 AM APPRENTICE FUNERAL DIRECTOR Hi Moore DO 10/07/2024 1:24 PM Critical Care Performed by: Hi Moore DO Authorized by: Hi Moore DO Critical care provider statement: Critical care time (minutes): 35 Critical care time was exclusive of: Separately billable procedures and treating other patients Critical care was necessary to treat or prevent imminent or life-threatening deterioration of the following conditions: Sepsis Critical care was time spent personally by me on the following activities: Development of treatment plan with patient or surrogate, evaluation of patient's response to treatment, ordering and performing treatments and interventions, ordering and review of laboratory studies, ordering and review of radiographic studies, pulse oximetry, re-evaluation of patient's condition, review of old charts, examination of patient, obtaining history from patient or surrogate and discussions with consultants I assumed direction of critical care for this patient from another provider in my specialty: no Care discussed with: admitting provider us Hi Moore DO PROCEDURE/MINOR SURGICAL OR DERABLES Final Result * EKG 12-LEAD (10/07/2024 10:21 AM APPRENTICE FUNERAL DIRECTOR) 10/07/2024 10:2 1 AM APPRENTICE FUNERAL DIRECTOR Narrative INTERFACE SYSTEM - 10/07/2024 5:48 PM [place] [address] Test Date: 2024-10-07 Pat Name: ASHLEE BLACK JR Department: 40 Room: 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 : 1950 Requested By: Order Number: [id number] Reading MD: Cornelio Ortiz Measurements Intervals [place] Rate: 89 P: 72 TN: 158 QRS: -24 QRSD: 90 T: 54 QT: 350 QTc: 426 Interpretive Statements Sinus rhythm Biatrial enlargement Borderline left axis deviation RSR' in V1 or V2, probably normal variant Electronically Signed On 10-07-2024 17:48:14 APPRENTICE FUNERAL DIRECTOR by Cornelio Ortiz us Hi Moore DO ECG ORDERABLES Final Resul t INTERFACE SYSTEM Refer to clinic/hospital department * TN NONINVASIVE EAR/PULSE OXIMETRY MULTIPLE DETER (10/03/2024 11:51 AM APPRENTICE FUNERAL DIRECTOR) Narrative Michaela Chiang - 10/03/2024 11:51 AM APPRENTICE FUNERAL DIRECTOR Michaela Chiang 10/03/2024 12:37 PM RA Rest 94% 81HR RA Walk:88% 89HR Distance:200 Feet RA Rest 95% 81HR Pt informed as above. Pt declined O2 at this time. Valentina Alonzo MACHINE ERECTOR PFT ORDERABLES Final Resu lt * T4 FREE (09/09/2024 2:15 PM APPRENTICE FUNERAL DIRECTOR) T4 FREE 1.3 0.8 - 1.8 ng/dL [facility] Comment: Test Performed at: [facility] [place] [address] [place] [id number] Celina Thrasher Blood 09/09/2024 2:15 PM APPRENTICE FUNERAL DIRECTOR 09/09/2024 2:15 PM APPRENTICE FUNERAL DIRECTOR Chris Yost MD CHEMISTRY ORDERABLES Final Resul t [facility] [phone] [place] [address] [place] [id number] * COLONOSCOPY REPORT (07/27/2023 11:30 AM APPRENTICE FUNERAL DIRECTOR) Narrative Procedure Note Edi Gutiérrez MD - 07/27/2023 11:[address] [facility] Endoscopy Patient Name: Ashlee Black Jr Procedure Date: 07/26/2023 Date of : 1950 Attending MD: Edi Gutiérrez MD, Procedure: Colonoscopy Indications: Surveillance: Personal history of adenomatous polyps on last colonoscopy > 5 years ago Providers: Edi Gutiérrez MD Referring MD: Sergio Menjivar MD Medicines: Propofol per Anesthesia Complications: No immediate complications. Procedure: Informed consent was obtained for the procedure, including moderate sedation after risks were discussed. Based on the pre-procedure assessment, including review of the patient's medical history, medications, allergies, and review of systems, the patient was deemed to be an appropriate candidate for sedation. A timeout was performed. Continuous ECG monitoring, pulse oximetry, blood pressure monitoring, and direct observation were performed. The Colonoscope was introduced through the anus and advanced to the cecum, identified by appendiceal orifice and ileocecal valve. The colonoscopy was performed without difficulty. The patient tolerated the procedure well. The quality of the bowel preparation was good. Estimated Blood Loss: Estimated blood loss: none. Findings: The colonic mucosa was without erythema or ulceration. There were scattered left-sided diverticulum. The colon prep was good. On withdrawal within the mid transverse colon there was a 7 to 8 mm benign-appearing polyp removed using cold snare polypectomy technique and collected for pathologic review. Within the distal descending/sigmoid colon there was a 12 to 14 mm benign-appearing polyp removed using cold snare polypectomy technique and collected for pathologic review. Retroflexion showed internal hemorrhoids. Impression: Benign-appearing colon polyps status post polypectomy as dictated. Internal hemorrhoids. Recommendation: For colon polyp surveillance recommend follow-up colonoscopy in 5 years Edi Gutiérrez MD 07/27/2023 11:27:42 AM This report has been signed electronically. Number of Addenda: [phone] ; [place] [address] us Edi Gutiérrez MD GI PROCEDURE ORDERABLES Lanette l Result * US AORTA IVC ILIAC DUPLEX COMP (09/02/2019 9:53 AM APPRENTICE FUNERAL DIRECTOR) Anatomical Region Laterality Modality Abdomen Ultrasound Impressions 09/02/2019 12:52 PM APPRENTICE FUNERAL DIRECTOR Normal aortoiliac duplex scan with no evidence of aneurysmal or occlusive disease. Narrative 09/02/2019 12:52 PM APPRENTICE FUNERAL DIRECTOR INDICATIONS The study is done to screen for abdominal aortic aneurysm. The patient is a former smoker who quit in 2004, and who suffers from hyperlipidemia but denies coronary artery disease, diabetes, or hypertension. RESULTS Color flow duplex imaging is performed of the aorta and iliac arteries. The maximum aortic diameter is 2.3 cm, which is normal. The right common iliac measures 10 mm, as does the left. Flow velocities in the iliac segment are normal. 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 intubation): No Mechanical Ventilation (for respiratory distress) - Non-Invasive (i.e. BiPAP, CPAP): Yes * Full Code Date Activated Date Inactivated Comments 06/03/2024 9:28 PM 06/07/2024 4:32 PM * Full Code Date Activated Date Inactivated Comments 03/14/2024 9:10 PM 03/17/2024 5:28 PM * Full Code Date Activated Date Inactivated Comments 07/26/2023 7:03 AM 07/26/2023 11:27 AM * Full Code Date Activated Date Inactivated Comments 09/14/2022 10:29 AM 09/14/2022 2:42 PM Care Teams Business Objects Architect Relationship Specialty Start Date End Date Sergio Menjivar MD [address] [facility] [address] [place] [address] PCP - General Internal Medicine 07/11/12
[2024-10-17 20:16] LABS: Hemoglobin 15.8 g/dL (14.0-18.0); Mean Corpuscular HGB Conc 32.9 g/dl (32-36); Mean Corpuscular Hemoglobin 31.4 pg (26-34); Mean Corpuscular Volume 95.4 fl (80-100); Mean Platelet Volume 9.7 fl (7.4-10.4); Platelet Count Result 480 k/mm3 (150-375); Red Blood Count 5.03 M/mm3 (4.6-6.20); Red Cell Distribution Width 12.5 % (11.5-14.5)
[2024-10-17 20:28] LABS: Lactic Acid Reflex 2.2 mmol/L (0.7-2.0)
[2024-10-17 20:30] LABS: Alanine Aminotransferase 25 U/L (6-50); Albumin Level 4.3 g/dL (3.5-5.1); Alkaline Phosphatase 66 U/L (38-126); Anion Gap 12 mmol/L (4-12); Aspartate Amino Transferase 30 U/L (17-59); Bilirubin,Total 0.5 mg/dL (0.2-1.3); Blood Urea Nitrogen 27 mg/dL (9-20); Calcium 9.5 mg/dL (8.4-10.2); Carbon Dioxide 31 mmol/L (22-30); Chloride 98 mmol/L (98-107); Estimated CRCL calculation 72 ml/min; Estimated Glomerular Filt Rate > 60; Glucose 200 mg/dL (65-110); Magnesium 3.3 mg/dL (1.6-2.3); Potassium 4.5 mmol/L (3.4-5.0); Sodium 141 mmol/L (137-145)
[2024-10-17] MEDS: SODIUM CHLORIDE 0.9% IV 1,000 ML 999 ML IV CONT ×2 (20:35→22:06)
[2024-10-17 20:41] LABS: Troponin I < 0.012 ng/mL (0.000-0.034)
[2024-10-17 20:51] LABS: Band Neutrophils Percent 5 % (0-6); Influenza A QL RT-PCR Negative (Negative); Influenza B QL RT-PCR Negative (Negative); Lymphocytes Absolute Manual 1.53 K/mm3 (1.1-4.5); Monocytes Absolute Manual 0.85 K/mm3 (0.1-0.90); Monocytes Percent Manual 5 % (3-9); Neutrophils Absolute Manual 14.62 K/mm3 (1.3-6.7); Neutrophils Percent Manual 81 % (46-73); Platelet Estimate Increased (Adequate); RSV RNA, RT-PCR Negative (Negative); SARS-CoV-2 RNA PCR Negative (Negative); Schistocytes None Seen; Total Cells Counted 100
--- NOTE | 2024-10-17 21:23 | ECG_ITS ---
Test Date: 2024-10-17 21:35:04 Measurements Intervals [place] Rate: 83 P: 68 AL: 155 QRS: -7 QRSD: 105 T: 32 QT: 364 QTc: 430 Interpretive Statements SINUS RHYTHM POSSIBLE LEFT ATRIAL ENLARGEMENT INCOMPLETE RIGHT BUNDLE BRANCH BLOCK DELAYED PRECORDIAL R/S TRANSITION MINIMAL Q WAVES- HIGH LATERAL LEADS BORDERLINE ECG Compared to ECG 10/17/2024 20:02:12 HEART RATE HAS DECREASED Electronically Signed On 10-18-2024 06:38:57 CHIEF WHARFINGER by Pedro Jensen D.O.
--- NOTE | 2024-10-17 21:25 | ED.GENADULT ---
HPI - General Adult General Chief complaint: Shortness of Breath/Dyspnea Stated complaint: dyspnea History of Present Illness HPI narrative: Patient is a 74-year-old male who presents to the emergency department this evening via EMS in respiratory distress. Per EMS report, patient was discharged from [facility] after being treated for aspiration pneumonia 5 days ago. Patient started to develop some worsening shortness of breath today and was on her way to take him to [facility] when his condition declined. then pulled over and called 911 and patient was brought to the nearest facility. For EMS, patient was noted to be satting 68% on room air. Patient does not wear any home oxygen and denies any history of COPD. He does have a G-tube which he has had for 14 years after a he was diagnosed with the tongue/throat cancer. Patient was placed on a CPAP by EMS with improvement of his oxygenation to 81%. He was given 2 mg of IV magnesium and 125 mg of IV Solu-Medrol on route to the emergency department. No albuterol was given as patient informed EMS that he has an allergy to albuterol, allergy being tachycardia and chest pain. Patient is currently denying any active chest pain. Denies any additional symptoms or concerns at this time. Related Data Home Medications ?Medication ?Instructions ?Recorded ?Confirmed ?Last Taken ?Type amlodipine 10 mg tablet 10 mg feeding tube DAILY 10/13/23 10/13/23 10/13/23 History cevimeline 30 mg capsule 1 cap feeding tube TID 10/13/23 10/13/23 10/13/23 History levothyroxine 50 mcg capsule 50 mcg PO DAILY 10/13/23 10/13/23 10/13/23 History sildenafil 25 mg tablet 25 mg PO DAILY PRN Erectile 10/13/23 10/13/23 Unknown History Dysfunction Allergies Allergy/AdvReac Type Severity Reaction Status Date / Time Aminoglycosides Allergy Mild RASH Verified 10/17/24 20:08 bacitracin Allergy Mild RASH Verified 10/17/24 20:08 neomycin Allergy Mild RASH Verified 10/17/24 20:08 albuterol AdvReac Chest Pain Verified 10/17/24 20:08 ANTIHISTAMINE Allergy Mild RASH Uncoded 10/17/24 20:08 POLYMYXINBSULF Allergy Mild RASH Uncoded 10/17/24 20:08 Review of Systems Review of Systems: All systems are reviewed and are negative unless stated otherwise in the HPI. [facility] Past Medical History Medical History History of gastrostomy tube placement Gastrointestinal tube present Tongue cancer Aspiration pneumonia Social History Social History Smoking packs per day: 1 Smoking cigarettes per day: 20.0 Smoking status: Former smoker Tobacco type: cigarettes Second hand tobacco smoke exposure: No Alcohol intake: never Substance use: never Do You Feel Safe in your Home?: Yes Lack of Transportation: No Lack of Food: Never True Current Housing: I Have Housing Concerned About Future Housing: No Difficulty Paying Gas/Electric Bills: No Difficulty Paying for Meds: No Currently Unemployed: No Education: Master's Degree or Higher Difficulty w/ Childcare or Family Care: No Spiritual care concerns: No Exam Narrative: General: Alert, awake, afebrile, in severe respiratory distress. HEENT: PERRL, no rhinorrhea, no post nasal drip, oropharynx clear. Neck: Trachea midline, no JVD, no lymphadenopathy. Cardiovascular: Tachycardic with regular rhythm, no murmurs, rubs or gallops, no peripheral edema. Respiratory: Coarse breath sounds bilaterally, tachypnea, severe respiratory distress. Abdomen: Soft, nontender, nondistended, no rebound, no guarding, no peritoneal signs. Musculoskeletal: No joint swelling or deformity, normal muscle tone. Skin: No rashes or petechia, no signs of infection. Psychiatric: Alert and oriented, normal behavior and judgment for situation. Neurological: Alert and oriented to person, place, and time. Follows all commands. No focal deficits, speech is clear and fluent. Course Vital Signs Vital signs: Vital Signs Temperature 99 F 10/17/24 19:56 Pulse Rate 118 H 10/17/24 19:56 Respiratory Rate 24 H 10/17/24 19:56 Blood Pressure 88/59 L 10/17/24 19:56 Pulse Oximetry 87 L 10/17/24 19:56 Oxygen Delivery CPAP 10/17/24 19:56 Temperature 99 F 10/17/24 19:56 Pulse Rate 76 10/18/24 06:30 Respiratory Rate 22 H 10/18/24 06:30 Blood Pressure 90/56 L 10/18/24 06:30 Pulse Oximetry 92 10/18/24 06:30 Oxygen Delivery BiPAP 10/18/24 02:35 Medical Decision Making MDM Narrative Medical decision making narrative: The patient was evaluated by myself in the emergency department. History is obtained from patient who is an independent historian and physical exam was performed. External medical records were reviewed at this time. IV was established and pertinent tests were ordered. Respiratory therapist at bedside, patient was switched to BiPAP at this time and administered 1 L IV fluid bolus with normal saline. Currently oxygenating well with improvement of his respiratory rate to 20 and SpO2 to 95%. EKG was obtained which revealed sinus tachycardia rate of 111 beats per minute with diffuse ST depressions and ST elevation noted in lead V1. EKG was independently interpreted by me and is currently pending official cardiology read. Initial EKG was obtained at 8:02 p.m. immediately upon patient's arrival. EKG was repeated at 9:35 p.m. revealing normal sinus rhythm at the rate of 83 beats minute with improvement of the diffuse ST depressions, no ST elevation noted, no evidence of acute ischemia. EKG was interpreted by me and is currently pending official cardiology read. Laboratory results obtained revealing a leukocytosis of 17, lactic acid of 2.2, magnesium of 3.3 otherwise unremarkable. Viral swabs negative for COVID/influenza/RSV. Imaging studies obtained included CTA PE protocol which was independently interpreted by me revealing: IMPRESSION: 1. Bilateral pneumonia with a lower lung predominance. 2. No pulmonary embolus. Sensitivity is moderately decreased by suboptimal contrast timing. 3. Mild left hilar and mediastinal lymphadenopathy, likely reactive. At this time, patient was started on antibiotics with cefepime, azithromycin and vancomycin to cover him for hospital-acquired pneumonia. Blood cultures were obtained prior to antibiotic administration. Differential diagnosis considerations include pneumonia, pulmonary emboli, sepsis, dehydration, electrolyte derangements, acute viral syndrome including COVID/influenza/RSV. Comorbidities impacting this visit include history of throat cancer with increased risk of developing or aspiration pneumonia. I have evaluated and discussed social determinants of health with the patient that could potentially impact subsequent diagnosis and treatment plans. On repeat assessment of the patient, reevaluation revealed that the patient is doing well and is in no acute distress. Patient symptoms have improved since he arrived to our emergency department. Repeat vital signs were all reviewed and noted to be stable. Differential diagnosis and treatment plan were discussed with the patient at bedside. Patient agrees with discussion and after shared medical decision making agrees with transfer. All questions were answered to the patient's satisfaction. [facility] transfer line was contacted at this time and transfer back to [facility] for continuity of care was initiated at this time. Did receive a call back at 0010 informing us that the patient was accepted under accepting physician Dr. Nicole and patient is currently pending a bed. Patient was started on maintenance fluids at this time with normal saline at a rate of 100 cc/hour. Vital Signs Vital Signs: Vital Signs Temperature 99 F 10/17/24 19:56 Pulse Rate 118 H 10/17/24 19:56 Respiratory Rate 24 H 10/17/24 19:56 Blood Pressure 88/59 L 10/17/24 19:56 Pulse Oximetry 87 L 10/17/24 19:56 Oxygen Delivery CPAP 10/17/24 19:56 Temperature 99 F 10/17/24 19:56 Pulse Rate 76 10/18/24 06:30 Respiratory Rate 22 H 10/18/24 06:30 Blood Pressure 90/56 L 10/18/24 06:30 Pulse Oximetry 92 10/18/24 06:30 Oxygen Delivery BiPAP 10/18/24 02:35 Lab Data 10/17/24 20:09 10/18/24 04:37 Labs: Lab Results 10/17/24 10/17/24 10/17/24 Range/Units 20:09 20:34 23:00 WBC 17.0 H (4.5-10.0) K/mm3 RBC 5.03 (4.6-6.20) M/mm3 Hgb 15.8 (14.0-18.0) g/dL Hct 48.0 (42.0-52.0) % MCV 95.4 (80-100) fl MCH 31.4 (26-34) pg MCHC 32.9 (32-36) g/dl RDW 12.5 (11.5-14.5) % Plt Count 480 H D (150-375) k/mm3 MPV 9.7 (7.4-10.4) fl Immature Gran % (Auto) Not Reportable Neut % (Auto) Not Reportable Lymph % (Auto) Not Reportable [place] % (Auto) Not Reportable Eos % (Auto) Not Reportable Baso % (Auto) Not Reportable Lymph # (Auto) Not Reportable [place] # (Auto) Not Reportable Eos # (Auto) Not Reportable Baso # (Auto) Not Reportable Abs Immat Gran (auto) Not Reportable Absolute Neuts (auto) Not Reportable Absolute Nucleated RBC Not Reportable Total Counted 100 Neutrophils % (Manual) 81 H (46-73) % Band Neutrophils % 5 (0-6) % Lymphocytes % (Manual) 9.0 L (18-44) % Monocytes % (Manual) 5 (3-9) % Nucleated RBC % Not Reportable Abs Neuts (Manual) 14.62 H (1.3-6.7) K/mm3 Abs Lymphs (Manual) 1.53 (1.1-4.5) K/mm3 Abs Monocytes (Manual) 0.85 (0.1-0.90) K/mm3 Platelet Estimate Increased (Adequate) Schistocytes None seen Sodium 141 (137-145) mmol/L Potassium 4.5 (3.4-5.0) mmol/L Chloride 98 (98-107) mmol/L Carbon Dioxide 31 H (22-30) mmol/L Anion Gap 12 (4-12) mmol/L BUN 27 H D (9-20) mg/dL Creatinine 0.70 (0.7-1.3) mg/dL Estim Creat Clear Calc 72 ml/min Estimated GFR > 60 (59 - ) Glucose 200 H (65-110) mg/dL Lactic Acid 2.2 H (0.7-2.0) mmol/L Calcium 9.5 (8.4-10.2) mg/dL Magnesium 3.3 H (1.6-2.3) mg/dL Total Bilirubin 0.5 (0.2-1.3) mg/dL AST 30 (17-59) U/L ALT 25 (6-50) U/L Alkaline Phosphatase 66 (38-126) U/L Troponin I < 0.012 (0.000-0.034) ng/mL Total Protein 9.0 H (6.3-8.2) g/dL Albumin 4.3 (3.5-5.1) g/dL Urine Color Yellow (Yellow) Urine Appearance Cloudy H (Clear) Urine pH 6.5 (5.0-9.0) Ur Specific [place] 1.022 (1.001-1.035) Urine Protein 1+ H (Negative) mg/dL Urine Glucose (UA) Negative (Negative) mg/dL Urine Ketones Negative (Negative) mg/dL Ur Blood (Man) Negative (Negative) Urine Nitrate Negative (Negative) Urine Bilirubin Negative (Negative) Urine Urobilinogen 1.0 (<2.0) mg/dL Leukocyte Esterase Rfl Negative (Negative) CHHAYA/UL Urine RBC 0-2 (0-2) /hpf Urine WBC 0-5 (0-3) /hpf Ur Squamous Epith Cells None seen (Few) /hpf Urine Bacteria None seen /hpf Urine Casts 3-5 Nasal MRSA (PCR) Not detected (NOT DETECTE) Influenza A (RT-PCR) Negative (Negative) Influenza B (RT-PCR) Negative (Negative) RSV (RT-PCR) Negative (Negative) SARS-CoV-2 RNA (RT-PCR) Negative (Negative) 10/17/24 10/18/24 10/18/24 Range/Units 23:34 02:32 04:37 WBC (4.5-10.0) K/mm3 RBC (4.6-6.20) M/mm3 Hgb (14.0-18.0) g/dL Hct (42.0-52.0) % MCV (80-100) fl MCH (26-34) pg MCHC (32-36) g/dl RDW (11.5-14.5) % Plt Count (150-375) k/mm3 MPV (7.4-10.4) fl Immature Gran % (Auto) Neut % (Auto) Lymph % (Auto) [place] % (Auto) Eos % (Auto) Baso % (Auto) Lymph # (Auto) [place] # (Auto) Eos # (Auto) Baso # (Auto) Abs Immat Gran (auto) Absolute Neuts (auto) Absolute Nucleated RBC Total Counted Neutrophils % (Manual) (46-73) % Band Neutrophils % (0-6) % Lymphocytes % (Manual) (18-44) % Monocytes % (Manual) (3-9) % Nucleated RBC % Abs Neuts (Manual) (1.3-6.7) K/mm3 Abs Lymphs (Manual) (1.1-4.5) K/mm3 Abs Monocytes (Manual) (0.1-0.90) K/mm3 Platelet Estimate (Adequate) Schistocytes Sodium (137-145) mmol/L Potassium (3.4-5.0) mmol/L Chloride (98-107) mmol/L Carbon Dioxide (22-30) mmol/L Anion Gap (4-12) mmol/L BUN (9-20) mg/dL Creatinine 0.51 L (0.7-1.3) mg/dL Estim Creat Clear Calc 96 ml/min Estimated GFR > 60 (59 - ) Glucose (65-110) mg/dL Lactic Acid 2.3 H (0.7-2.0) mmol/L Calcium (8.4-10.2) mg/dL Magnesium (1.6-2.3) mg/dL Total Bilirubin (0.2-1.3) mg/dL AST (17-59) U/L ALT (6-50) U/L Alkaline Phosphatase (38-126) U/L Troponin I 0.032 D 0.023 D (0.000-0.034) ng/mL Total Protein (6.3-8.2) g/dL Albumin (3.5-5.1) g/dL Urine Color (Yellow) Urine Appearance (Clear) Urine pH (5.0-9.0) Ur Specific [place] (1.001-1.035) Urine Protein (Negative) mg/dL Urine Glucose (UA) (Negative) mg/dL Urine Ketones (Negative) mg/dL Ur Blood (Man) (Negative) Urine Nitrate (Negative) Urine Bilirubin (Negative) Urine Urobilinogen (<2.0) mg/dL Leukocyte Esterase Rfl (Negative) CHHAYA/UL Urine RBC (0-2) /hpf Urine WBC (0-3) /hpf Ur Squamous Epith Cells (Few) /hpf Urine Bacteria /hpf Urine Casts Nasal MRSA (PCR) (NOT DETECTE) Influenza A (RT-PCR) (Negative) Influenza B (RT-PCR) (Negative) RSV (RT-PCR) (Negative) SARS-CoV-2 RNA (RT-PCR) (Negative) Discharge Plan Discharge Clinical Impression: Bilateral pneumonia, HCAP (healthcare-associated pneumonia), Septic shock, Acute hypoxic respiratory failure Patient Disposition: Acute Care Hospital Condition: Improved Patient Language: Nepali Prescriptions: No Action sildenafil 25 mg Tablet 25 mg PO DAILY PRN (Reason: Erectile Dysfunction) Rx Instructions: administer 30 minutes to 4 hours before activity amlodipine 10 mg Tablet 10 mg feeding tube DAILY cevimeline 30 mg Capsule 1 cap feeding tube TID levothyroxine 50 mcg Capsule 50 mcg PO DAILY levalbuterol HCl 1.25 mg/3 mL Solution For Nebulization 1.25 mg inhalation Q6HRT Qty: 30 0RF fluticasone propionate 50 mcg/actuation [place],Suspension 1 spray intranasal Q12HR Qty: 1 1RF amoxicillin-pot clavulanate 875-125 mg tablet 1 tablet PO Q12H Qty: 5 0RF methylprednisolone 4 mg tablets,dose pack See Rx Instructions .ROUTE .COMPLEX Qty: 21 0RF Rx Instructions: orally per package directions (DME) nebulizer and compressor Device See Rx Instructions .Route Qty: 1 0RF Rx Instructions: As directed levalbuterol tartrate 45 mcg/actuation HFA aerosol inhaler 1 inh inhalation Q6H PRN (Reason: shortness of breath or wheezing) Qty: 15 0RF (DME) nebulizer accessories Kit See Rx Instructions .Route Qty: 1 0RF Rx Instructions: As directed Follow-up/Referrals: UNKNOWN,DOCTOR [Primary Care Provider] - Time of Disposition: 03:21
[2024-10-17] MEDS: CEFEPIME 2 GM/NS 50 ML 2 GM/50 ML BAG IVPB (22:06)
[2024-10-17 22:11] LABS: Add Urine Microscopic? YES; Appearance Urine Cloudy (Clear); Bacteria Urine None Seen /hpf; Bilirubin Urine Negative (Negative); Blood Urine Negative (Negative); Color Urine Yellow (Yellow); Glucose Urine UA Negative (Negative); Ketones Urine Negative (Negative); Leukocyte Esterase Ur Negative LEU/UL (Negative); Nitrate Urine Negative (Negative); Protein Urine 1+ mg/dL (Negative); RBC Urine 0-2 /hpf (0-2); Specific Grav Ur 1.022 (1.001-1.035); Squamous Epithelial Cell Urine None Seen /hpf (Few); WBC Urine 0-5 /hpf (0-3); pH Urine 6.5 (5.0-9.0)
[2024-10-17] MEDS: AZITHROMYCIN 500 MG/NS 250 ML 500 MG/250 ML BAG 250 MG IVPB (22:56)
[2024-10-17 23:14] LABS: Reflex Lactic Acid Yes or No Add Lactic
[2024-10-17 23:50] LABS: Lactic Acid 2.3 mmol/L (0.7-2.0)
--- NOTE | 2024-10-17 23:54 | PC.NURSE ---
Patient oxygen saturation dropped to 85% and began grunting again on Bipap, Jazmin SWARTZ made aware of change in patient condition.
[2024-10-18] VITALS (22 sets, daily range): BP systolic 85–134; BP diastolic 47–84; PULSE 65–87; RESP 21–30; O2SAT 91–99
[2024-10-18 00:02] LABS: Troponin I 0.032 ng/mL (0.000-0.034)
[2024-10-18] MEDS: VANCOMYCIN 1,500 MG/NS 500 ML 1,500 MG/500 ML BAG 250 MG IVPB (00:10)
[2024-10-18 00:28] LABS: MRSA (PCR) NOT DETECTED (NOT DETECTE)
[2024-10-18 03:17] LABS: Troponin I 0.023 ng/mL (0.000-0.034)
[2024-10-18] MEDS: SODIUM CHLORIDE 0.9% IV 1,000 ML 100 ML IV CONT (03:51)
[2024-10-18 04:52] LABS: Estimated CRCL calculation 96 ml/min; Estimated Glomerular Filt Rate > 60
== END 2024-10-18 09:41 | disposition short-term general hospital (02) ==
PROVIDERS: Emergency Provider Emergency Medicine
DX: A41.9 Sepsis, unspecified organism (principal); R65.21 Severe sepsis with septic shock; J96.01 Acute respiratory failure with hypoxia; J18.9 Pneumonia, unspecified organism; Z20.822 Contact with and (suspected) exposure to COVID-19; Z93.1 Gastrostomy status; Z85.810 Personal history of malignant neoplasm of tongue; Z79.899 Other long term (current) drug therapy
CPT/HCPCS: 36415; 71275; 80053; 81001; 82565; 83605; 83735; 84484; 85025; 87040; 87637; 87641; 93005; 94002; 94003; 96361; 96365; 96366; 96367; 99285; J0456; J0692; J3370; J7030; Q9967